=== PATIENT | male | born 1955 | race Caucasian/White ===

== ENCOUNTER 2020-09-13 17:34 | Inpatient (IN) ==
[2020-09-13 18:05] LABS: Urine Appearance Slightly Cloudy (CLEAR); Urine Bilirubin Negative (NEGATIVE); Urine Blood 25 /ul (NEGATIVE); Urine Color Yellow; Urine Ketone Negative (NEGATIVE); Urine Protein >=300 mg/dL (NEGATIVE); Urine Urobilinogen Normal (NORMAL)
[2020-09-13 18:06] LABS: Urine Nitrite Negative (NEGATIVE)
[2020-09-13 18:09] LABS: Urine Bacteria None Seen; Urine Fine Granular Cast 0-5 /LPF; Urine RBC None Seen /hpf (0-5); Urine WBC 0-5 /hpf (0-5)
[2020-09-13 18:10] LABS: Urine Amorphous Sediment Few - 1+ (NONE-FEW)
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
[2020-09-13 18:46] LABS: Hematocrit 41.9 % (42.0-52.0); Hemoglobin 13.6 gm/dL (13.5-18.0); Mean Cell Volume 89.7 fl (78-100); Mean Corpuscular Hemoglobin 29.1 pg (27-31); Mean Corpuscular Hgb Conc 32.5 g/dl (32-36); Mean Platelet Volume 9.7 fl (8-11.3); Neutrophil # 5.4 K/mm3 (1.3-6.0); Neutrophil % 86.5 % (42-75.0); Platelet Count 150 K/mm3 (150-450); Red Blood Count 4.67 M/mm3 (4.7-6.0); Red Cell Distribution Width 12.9 % (11.5-14.0); White Blood Count 6.2 K/mm3 (4.0-10.5)
[2020-09-13 19:05] LABS: Anion Gap 10.4 mmol/L (6.8-13.8); BUN/Creatinine Ratio 7.9 (9.0-21.6); Bilirubin, Total 0.4 mg/dL (0.0-1.1); Ca. Corrected For Albumin 8.1 mg/dL (8.4-10.2); Calcium * 7.6 mg/dL (7.9-10.9); Carbon Dioxide 30.2 mmol/L (24-32.6); Potassium 2.6 mmol/L (3.4-4.6); Total Protein 6.8 gm/dL (6.2-8.2)
[2020-09-13 19:12] LABS: Troponin I 0.113 ng/mL (0.00-0.10)
[2020-09-13] MEDS ORDERED: FUROSEMIDE 10 MG/ML VIAL IV ONE (19:14)
[2020-09-13] MEDS ORDERED: LEVOFLOXACIN IN DEXTROSE 5 % 500 MG/100 ML BAG IV ONE (19:14)
[2020-09-13] MEDS ORDERED: POTASSIUM CHLORIDE IN WATER 100 ML IV ONE (19:15)
[2020-09-13] MEDS ORDERED: ASPIRIN 81 MG TAB.CHEW PO ONE (19:52)
[2020-09-13] MEDS ORDERED: NORMAL SALINE 1,000 ML IV PRN (19:59)
--- NOTE | 2020-09-13 20:59 | HP ---
Chief Complaint - Chief Complaint Date of Service: 09/13/20 Time of Service: 19:30 Chief Complaint: found on floor History of Present Illness: Patient unable to contribute to history. History obtained from ERP and chart. He is a resident on an [facility] home. He has a PMHx of Down syndrome with intellectual disability, renal disease, diabetes, hypertension, and bipolar disorder. He reportedly does not converse at baseline. He was not acting himself, and was found on the floor next to his bed. In the ED, his CXR shows a density in his right chest concerning for infiltrate. His oxygen was 87% initially, so he was started on 1 L O2 via NC. He is in atrial fibrillation, which has not been present in the past. His troponin is slightly elevated at 0.113. Lactate elevated at 3.4. He's hypokalemic with potassium of 2.6. No nitrates or leuk esterase in urine. No new findings on head CT. He seemed to be favoring his right hip, and this was xrayed with no clear fracture. He was admitted for treatment of pneumonia, hypokalemia, elevated lactate. Medical History (Last Reviewed 09/13/20 @ 18:37 by Mohinedr Coe MD) Bipolar disorder (Chronic) Down's syndrome (Chronic) Enlarged heart Allergic rhinitis Anemia B12 deficiency BPH (benign prostatic hyperplasia) Chest pain Chronic kidney disease, stage 3 Constipation Depression Diabetes mellitus Diarrhea Diverticulosis Down's syndrome Edema Fatigue GERD (gastroesophageal reflux disease) Hearing loss Hyperlipemia Hypertension Mental retardation Morbid obesity Organic brain syndrome (chronic) Schizoaffective disorder, bipolar type Schizophrenia Scoliosis Sleep apnea Urinary incontinence Anal fissure Fracture History of colonic polyps Manic affective disorder with recurrent episode Surgical History: Surgical History (Last Reviewed 09/13/20 @ 18:37 by Mohinder Coe MD) H/O mastoidectomy History of esophagogastroduodenoscopy (EGD) History of myringotomy History of nasal septoplasty History of removal of cyst History of tonsillectomy Hx of colonoscopy Hx of rectal polypectomy Family History: Family History (Last Reviewed 09/13/20 @ 18:37 by Mohinder Coe MD) Mother Hypertension Hypothyroidism Father Pancreatic cancer Social History: (Last Reviewed 09/13/20 @ 18:37 by Mohinder Coe MD) Social History: lives independently: No lives independently comment: [facility] Tobacco: Smoking Status: Never smoker Alaina/Mormonism: alaina/islam: Religious Alaina Review Of Systems (GEN) - Review of Systems Generalized/Overall Review: Present: No Symptoms Reported - unable to obtain from patient Immunizations: IMMUNIZATION HX Immunizations Up to Date Yes History of Influenza Vaccine No Hx Pneumococcal Vaccination No Allergies/Adverse Reactions: Allergies Allergy/AdvReac Type Severity Reaction Status Date / Time donepezil [From Aricept] Allergy RASH Verified 04/17/20 10:05 Home Medications: HOME MEDICATIONS multivit with min-folic acid-lutein 400 mcg-250 mcg chewable tablet tab PO 03/27/18 [Last Taken Unknown] ascorbic acid (vitamin C) 500 mg tablet 1,000 mg PO DAILY #2 tab 12/18/19 [Last Taken Unknown] glipizide 5 mg tablet, extended release 24 hr 5 mg PO DAILY@0700 #30 tab 05/25/20 [Last Taken Unknown] cyanocobalamin (vitamin B-12) 1,000 mcg/mL injection solution 1,000 mcg IM QMONTH #1 ml 06/01/20 [Last Taken Unknown] amantadine HCl 100 mg capsule See Rx Instructions .ROUTE .COMPLEX #90 unknown measurement unit code: not specified 06/23/20 [Last Taken Unknown] amlodipine 5 mg tablet See Rx Instructions .ROUTE .COMPLEX #180 unknown measurement unit code: not specified 06/23/20 [Last Taken Unknown] aspirin 81 mg chewable tablet See Rx Instructions .ROUTE .COMPLEX #90 unknown measurement unit code: not specified 06/23/20 [Last Taken Unknown] omeprazole 20 mg tablet,delayed release 20 mg PO DAILY #90 tab 06/23/20 [Last Taken Unknown] levocetirizine 5 mg tablet 5 mg PO HS #30 tab 06/24/20 [Last Taken Unknown] miconazole nitrate 2 % topical powder 1 applic TP BID #90 g 07/09/20 [Last Taken Unknown] lurasidone 80 mg tablet 80 mg PO QPM #1 tab 07/21/20 [Last Taken Unknown] ferrous sulfate 325 mg (65 mg iron) tablet See Rx Instructions .ROUTE .COMPLEX #60 tab 07/22/20 [Last Taken Unknown] furosemide 40 mg tablet 40 mg PO DAILY #30 tab 07/22/20 [Last Taken Unknown] atorvastatin 20 mg tablet 20 mg PO HS #30 tab 08/19/20 [Last Taken Unknown] lamotrigine 150 mg tablet 150 mg PO DAILY #30 tab 08/19/20 [Last Taken Unknown] metoprolol tartrate 50 mg tablet 50 mg PO BID #60 tab 08/19/20 [Last Taken Unknown] blood sugar diagnostic See Rx Instructions .ROUTE .COMPLEX #100 unknown measurement unit code: not specified 09/02/20 [Last Taken Unknown] Exam - Exam Vital Signs: Vital Signs - Last Taken Temp 36.9 C 09/13/20 20:20 Pulse 88 09/13/20 20:20 Resp 22 H 09/13/20 20:20 BP 152/78 H 09/13/20 20:20 Pulse Ox 98 09/13/20 20:20 Constitutional: Present: Somnolent, Morbidly obese Respiratory: Present: normal breath sounds, No wheezing. Absent: crackles, rhonchi Cardiovascular/Chest: Present: irregularly irregular Abdomen: Present: soft, nontender Extremity: Absent: lower extremity edema Thoughts: Present: other - does not interact or respond to questions Diagnostic Studies: Abnormal Lab Results 09/13/20 09/13/20 09/13/20 Range/Units 17:46 18:24 18:24 RBC 4.67 L (4.7-6.0) M/mm3 Hct 41.9 L (42.0-52.0) % Immature Gran % (Auto) 1.10 H (0.001-0.429) % Immature Gran # (Auto) 0.07 H (0.000-0.0310) K/mm3 Neutrophils % 86.5 H (42-75.0) % Lymphocytes % 5.2 L (20-51) % Lymphocytes # 0.32 L (1.5-3.5) k/mm3 Total CO2 (19.0-24.0) mmol/L Base Excess (-2.0-3.0) mmol/L ABG pH (7.35-7.45) Potassium 2.6 L D (3.4-4.6) mmol/L Creatinine 1.78 H (0.4-1.4) mg/dL Est GFR (Non-Af Amer) 41 L (60-130) mL/min BUN/Creatinine Ratio 7.9 L (9.0-21.6) Random Glucose 332 H (70-110) mg/dL Lactic Acid, Venous (0.4-2.0) mmol/L Calcium 7.6 L (7.9-10.9) mg/dL Calcium Adj for Albumin 8.1 L (8.4-10.2) mg/dL Troponin I 0.113 H* (0.00-0.10) ng/mL B-Natriuretic Peptide 3129 H (5-175) pg/mL Albumin 3.0 L (3.4-5.0) gm/dl Urine Protein >=300 H (NEGATIVE) mg/dL Urine Glucose (UA) 250 H (NEGATIVE) mg/dL Urine Blood 25 H (NEGATIVE) /ul Fine Granular Casts 0-5 H (NONE) /LPF SARS-CoV-2 (PCR) (NotDetected) 09/13/20 09/13/20 09/13/20 Range/Units 18:24 19:17 19:30 RBC (4.7-6.0) M/mm3 Hct (42.0-52.0) % Immature Gran % (Auto) (0.001-0.429) % Immature Gran # (Auto) (0.000-0.0310) K/mm3 Neutrophils % (42-75.0) % Lymphocytes % (20-51) % Lymphocytes # (1.5-3.5) k/mm3 Total CO2 28.9 H (19.0-24.0) mmol/L Base Excess 4.4 H (-2.0-3.0) mmol/L ABG pH 7.49 H (7.35-7.45) Potassium (3.4-4.6) mmol/L Creatinine (0.4-1.4) mg/dL Est GFR (Non-Af Amer) (60-130) mL/min BUN/Creatinine Ratio (9.0-21.6) Random Glucose (70-110) mg/dL Lactic Acid, Venous 3.4 H* (0.4-2.0) mmol/L Calcium (7.9-10.9) mg/dL Calcium Adj for Albumin (8.4-10.2) mg/dL Troponin I (0.00-0.10) ng/mL B-Natriuretic Peptide (5-175) pg/mL Albumin (3.4-5.0) gm/dl Urine Protein (NEGATIVE) mg/dL Urine Glucose (UA) (NEGATIVE) mg/dL Urine Blood (NEGATIVE) /ul Fine Granular Casts (NONE) /LPF SARS-CoV-2 (PCR) Detected H (NotDetected) Laboratory Results WBC 6.2 K/mm3 (4.0-10.5) 09/13/20 18:24 RBC 4.67 M/mm3 (4.7-6.0) L 09/13/20 18:24 Hgb 13.6 gm/dL (13.5-18.0) 09/13/20 18:24 Hct 41.9 % (42.0-52.0) L 09/13/20 18:24 MCV 89.7 fl (78-100) 09/13/20 18: MCH 29.1 pg (27-31) 09/13/20 18: MCHC 32.5 g/dl (32-36) 09/13/20 18:24 RDW 12.9 % (11.5-14.0) 09/13/20 18:24 Plt Count 150 K/mm3 (150-450) 09/13/20 18: MPV 9.7 fl (8-11.3) 09/13/20 18:24 Immature Gran % (Auto) 1.10 % (0.001-0.429) H 09/13/20 18: Immature Gran # (Auto) 0.07 K/mm3 (0.000-0.0310) H 09/13/20 18:24 Neutrophils % 86.5 % (42-75.0) H 09/13/20 18:24 Lymphocytes % 5.2 % (20-51) L 09/13/20 18:24 Monocytes % 6.9 % (0.0-9) 09/13/20 18:24 Eosinophils % 0.0 % (0.0-3.0) 09/13/20 18: Basophils % 0.3 % (0.0-1.0) 09/13/20 18: Nucleated RBC % 0.0 k/mm3 (0-1) 09/13/20 18:24 Neutrophils # 5.4 K/mm3 (1.3-6.0) 09/13/20 18:24 Lymphocytes # 0.32 k/mm3 (1.5-3.5) L 09/13/20 18:24 Monocytes # 0.4 k/mm3 (0.0-1.0) 09/13/20 18:24 Eosinophils # 0.0 k/mm3 (0.0-0.7) 09/13/20 18:24 Absolute Basophils 0.0 k/mm3 (0.0-0.1) 09/13/20 18:24 pCO2 37.4 mmHg (35.0-48.0) 09/13/20 19:17 pO2 90.2 mmHg (83.0-108.0) 09/13/20 19:17 HCO3 27.8 mmol/L (21.0-28.0) 09/13/20 19:17 Total CO2 28.9 mmol/L (19.0-24.0) H 09/13/20 19:17 Base Excess 4.4 mmol/L (-2.0-3.0) H 09/13/20 19:17 ABG pH 7.49 (7.35-7.45) H 09/13/20 19:17 ABG O2 Sat (Measured) 97.5 % (94.0-98.0) 09/13/20 19:17 Sodium 135 mmol/L (132-142) 09/13/20 18:24 Plasma Sodium 139 mmol/L (130-142) 09/13/20 18:24 Potassium 2.6 mmol/L (3.4-4.6) L D 09/13/20 18:24 Chloride 97 mmol/L (97-106) 09/13/20 18:24 Carbon Dioxide 30.2 mmol/L (24-32.6) 09/13/20 18:24 Anion Gap 10.4 mmol/L (6.8-13.8) 09/13/20 18:24 BUN 14 mg/dL (6-23) 09/13/20 18:24 Creatinine 1.78 mg/dL (0.4-1.4) H 09/13/20 18:24 Est GFR (Non-Af Amer) 41 mL/min (60-130) L 09/13/20 18:24 BUN/Creatinine Ratio 7.9 (9.0-21.6) L 09/13/20 18:24 Random Glucose 332 mg/dL (70-110) H 09/13/20 18:24 Lactic Acid, Venous 3.4 mmol/L (0.4-2.0) H* 09/13/20 18:24 Calcium 7.6 mg/dL (7.9-10.9) L 09/13/20 18:24 Calcium Adj for Albumin 8.1 mg/dL (8.4-10.2) L 09/13/20 18:24 Magnesium 1.3 mg/dL (1.2-2.8) 09/13/20 18:24 Total Bilirubin 0.4 mg/dL (0.0-1.1) 09/13/20 18:24 AST 20 U/L (0-48) 09/13/20 18:24 ALT 25 U/L (19-67) 09/13/20 18:24 Alkaline Phosphatase 132 U/L (50-170) 09/13/20 18:24 Creatine Kinase 164 U/L (0-259) 09/13/20 18:24 Troponin I 0.113 ng/mL (0.00-0.10) H* 09/13/20 18:24 B-Natriuretic Peptide 3129 pg/mL (5-175) H 09/13/20 18:24 Total Protein 6.8 gm/dL (6.2-8.2) 09/13/20 18:24 Albumin 3.0 gm/dl (3.4-5.0) L 09/13/20 18:24 Urine Color Yellow 09/13/20 17:46 Urine Appearance Slightly cloudy (CLEAR) 09/13/20 17:46 Urine pH 6.0 pH (5.0-7.0) 09/13/20 17:46 Ur Specific [place] 1.020 SP.GR. (1.005-1.030) 09/13/20 17:46 Urine Protein >=300 mg/dL (NEGATIVE) H 09/13/20 17:46 Urine Glucose (UA) 250 mg/dL (NEGATIVE) H 09/13/20 17:46 Urine Ketones Negative mg/dL (NEGATIVE) 09/13/20 17:46 Urine Blood 25 /ul (NEGATIVE) H 09/13/20 17:46 Urine Nitrate Negative (NEGATIVE) 09/13/20 17:46 Urine Bilirubin Negative mg/dl (NEGATIVE) 09/13/20 17:46 Urine Urobilinogen Normal EU/dl (NORMAL) 09/13/20 17:46 Ur Leukocyte Esterase Negative /ul (NEGATIVE) 09/13/20 17:46 Urine RBC None seen /hpf (0-5) 09/13/20 17:46 Urine WBC 0-5 /hpf (0-5) 09/13/20 17:46 Ur Epithelial Cells 0-5 /hpf (0-5) 09/13/20 17:46 Amorphous Sediment Few - 1+ (NONE-FEW) 09/13/20 17:46 Urine Bacteria None seen (NONE) 09/13/20 17:46 Fine Granular Casts 0-5 /LPF (NONE) H 09/13/20 17:46 Urine Culture Comments No culture indicated 09/13/20 17:46 SARS-CoV-2 (PCR) Detected (NotDetected) H 09/13/20 19:30 Assessment/Plan - Narrative Narrative: He was started on levaquin in the ED, and will continue. He has a mildly elevated BNP, but no signs of fluid overload on exam, so will administer a 500 cc NS bolus for the elevated lactate. His troponin elevated may be due to his new onset afib. His vitals are normal, so he is not currently septic. He was given IV potassium in the ED, and will recheck in the morning. Repeat troponin and lactate levels pending. I called his contact in his chart, but unable to reach her regarding code status and goals of care, so will try again tomorrow. COVID test still pending at this time. Anticipate hospitalization of at least 2 midnights. - Assessment/Plan (1) Pneumonia Problem: Acute (2) Hypoxia Problem: Acute (3) Elevated troponin Problem: Acute (4) Elevated lactic acid level Problem: Acute (5) Hypokalemia Problem: Acute (6) New onset a-fib Problem: Acute (7) Hypertension Problem: Chronic Qualifiers: Hypertension type: essential hypertension Qualified Code(s): I10 - Essential (primary) hypertension (8) Type II diabetes mellitus Problem: Chronic Qualifiers: Diabetes mellitus intermediate project manager insulin use: without intermediate project manager use Diabetes mellitus complication status: with kidney complications Diabetes mellitus complication detail: with chronic kidney disease Chronic kidney disease stage: stage 3 (moderate) Qualified Code(s): E11.22 - Type 2 diabetes mellitus with diabetic chronic kidney disease; N18.3 - Chronic kidney disease, stage 3 (moderate) (9) Bipolar disorder Problem: Chronic Qualifiers: Active/Remission status: currently active Current bipolar episode type: depressed Current episode severity: mild Qualified Code(s): F31.31 - Bipolar disorder, current episode depressed, mild (10) Down's syndrome Problem: Chronic
[2020-09-13] MEDS: NORMAL SALINE 1,000 ML IV PRN (22:00)
[2020-09-13] MEDS: ENOXAPARIN SODIUM 40 MG/0.4 ML SYRG SC SCH (23:56)
[2020-09-14 05:19] LABS: Hematocrit 41.6 % (42.0-52.0); Hemoglobin 13.5 gm/dL (13.5-18.0); Mean Cell Volume 89.5 fl (78-100); Mean Corpuscular Hgb Conc 32.5 g/dl (32-36); Mean Platelet Volume 9.8 fl (8-11.3); Neutrophil # 4.4 K/mm3 (1.3-6.0); Neutrophil % 83.6 % (42-75.0); Platelet Count 146 K/mm3 (150-450); Red Blood Count 4.65 M/mm3 (4.7-6.0); Red Cell Distribution Width 12.8 % (11.5-14.0); White Blood Count 5.3 K/mm3 (4.0-10.5)
[2020-09-14 05:37] LABS: Albumin * 2.9 gm/dl (3.4-5.0); Anion Gap 14.3 mmol/L (6.8-13.8); BUN/Creatinine Ratio 8.8 (9.0-21.6); Bilirubin, Total 0.4 mg/dL (0.0-1.1); Ca. Corrected For Albumin 7.5 mg/dL (8.4-10.2); Calcium * 6.9 mg/dL (7.9-10.9); Carbon Dioxide 30.3 mmol/L (24-32.6); Potassium 2.6 mmol/L (3.4-4.6); Total Protein 6.2 gm/dL (6.2-8.2)
[2020-09-14] MEDS: NORMAL SALINE 1,000 ML IV PRN ×3 (06:00→17:49)
[2020-09-14] MEDS: DEXAMETHASONE SODIUM PHOSPHATE 10 MG/ML VIAL IV SCH (08:29)
--- NOTE | 2020-09-14 08:45 | PN ---
Subjective - Date and Time Seen Date: 09/14/20 Time: 09:45 Subjective Narrative: Is not interactive. Talked to his sister in law, Ceci. Normally, he won't talk to people, but he does talk. He doesn't hear well. He always sleeps a lot, but he feeds himself. He is DNR. They didn't know he wasn't feeling well, so she is unaware of when symptoms started. He uses a CPAP. He takes meds ok. Checks his own glucose. She is Ok with keeping anticoagulation after DC for his afib. Objective Objective Narrative: unable to obtain - Vitals Vitals: Last Vital Signs Temp 36.9 C 09/14/20 07:05 Pulse 98 09/14/20 07:05 Resp 20 09/14/20 07:05 BP 156/70 H 09/14/20 07:05 Pulse Ox 92 L 09/14/20 07:05 - Abnormal Lab Findings Abnormal Lab Findings: Abnormal Lab Results 09/13/20 09/13/20 09/13/20 Range/Units 17:46 18:24 18:24 RBC 4.67 L (4.7-6.0) M/mm3 Hct 41.9 L (42.0-52.0) % Plt Count (150-450) K/mm3 Immature Gran % (Auto) 1.10 H (0.001-0.429) % Immature Gran # (Auto) 0.07 H (0.000-0.0310) K/mm3 Neutrophils % 86.5 H (42-75.0) % Lymphocytes % 5.2 L (20-51) % Lymphocytes # 0.32 L (1.5-3.5) k/mm3 Total CO2 (19.0-24.0) mmol/L Base Excess (-2.0-3.0) mmol/L ABG pH (7.35-7.45) Plasma Sodium (130-142) mmol/L Potassium 2.6 L D (3.4-4.6) mmol/L Anion Gap (6.8-13.8) mmol/L Creatinine 1.78 H (0.4-1.4) mg/dL Est GFR (Non-Af Amer) 41 L (60-130) mL/min BUN/Creatinine Ratio 7.9 L (9.0-21.6) Random Glucose 332 H (70-110) mg/dL Lactic Acid, Venous (0.4-2.0) mmol/L Calcium 7.6 L (7.9-10.9) mg/dL Calcium Adj for Albumin 8.1 L (8.4-10.2) mg/dL AST (0-48) U/L Troponin I 0.113 H* (0.00-0.10) ng/mL B-Natriuretic Peptide 3129 H (5-175) pg/mL Albumin 3.0 L (3.4-5.0) gm/dl Urine Protein >=300 H (NEGATIVE) mg/dL Urine Glucose (UA) 250 H (NEGATIVE) mg/dL Urine Blood 25 H (NEGATIVE) /ul Fine Granular Casts 0-5 H (NONE) /LPF SARS-CoV-2 (PCR) (NotDetected) 09/13/20 09/13/20 09/13/20 Range/Units 18:24 19:17 19:30 RBC (4.7-6.0) M/mm3 Hct (42.0-52.0) % Plt Count (150-450) K/mm3 Immature Gran % (Auto) (0.001-0.429) % Immature Gran # (Auto) (0.000-0.0310) K/mm3 Neutrophils % (42-75.0) % Lymphocytes % (20-51) % Lymphocytes # (1.5-3.5) k/mm3 Total CO2 28.9 H (19.0-24.0) mmol/L Base Excess 4.4 H (-2.0-3.0) mmol/L ABG pH 7.49 H (7.35-7.45) Plasma Sodium (130-142) mmol/L Potassium (3.4-4.6) mmol/L Anion Gap (6.8-13.8) mmol/L Creatinine (0.4-1.4) mg/dL Est GFR (Non-Af Amer) (60-130) mL/min BUN/Creatinine Ratio (9.0-21.6) Random Glucose (70-110) mg/dL Lactic Acid, Venous 3.4 H* (0.4-2.0) mmol/L Calcium (7.9-10.9) mg/dL Calcium Adj for Albumin (8.4-10.2) mg/dL AST (0-48) U/L Troponin I (0.00-0.10) ng/mL B-Natriuretic Peptide (5-175) pg/mL Albumin (3.4-5.0) gm/dl Urine Protein (NEGATIVE) mg/dL Urine Glucose (UA) (NEGATIVE) mg/dL Urine Blood (NEGATIVE) /ul Fine Granular Casts (NONE) /LPF SARS-CoV-2 (PCR) Detected H (NotDetected) 09/13/20 09/14/20 09/14/20 Range/Units 22:14 01:05 05:00 RBC 4.65 L (4.7-6.0) M/mm3 Hct 41.6 L (42.0-52.0) % Plt Count 146 L (150-450) K/mm3 Immature Gran % (Auto) 0.80 H (0.001-0.429) % Immature Gran # (Auto) 0.04 H (0.000-0.0310) K/mm3 Neutrophils % 83.6 H (42-75.0) % Lymphocytes % 7.5 L (20-51) % Lymphocytes # 0.40 L (1.5-3.5) k/mm3 Total CO2 (19.0-24.0) mmol/L Base Excess (-2.0-3.0) mmol/L ABG pH (7.35-7.45) Plasma Sodium (130-142) mmol/L Potassium (3.4-4.6) mmol/L Anion Gap (6.8-13.8) mmol/L Creatinine (0.4-1.4) mg/dL Est GFR (Non-Af Amer) (60-130) mL/min BUN/Creatinine Ratio (9.0-21.6) Random Glucose (70-110) mg/dL Lactic Acid, Venous (0.4-2.0) mmol/L Calcium (7.9-10.9) mg/dL Calcium Adj for Albumin (8.4-10.2) mg/dL AST (0-48) U/L Troponin I 0.251 H* 0.311 H* (0.00-0.10) ng/mL B-Natriuretic Peptide (5-175) pg/mL Albumin (3.4-5.0) gm/dl Urine Protein (NEGATIVE) mg/dL Urine Glucose (UA) (NEGATIVE) mg/dL Urine Blood (NEGATIVE) /ul Fine Granular Casts (NONE) /LPF SARS-CoV-2 (PCR) (NotDetected) 09/14/20 09/14/20 Range/Units 05:00 05:00 RBC (4.7-6.0) M/mm3 Hct (42.0-52.0) % Plt Count (150-450) K/mm3 Immature Gran % (Auto) (0.001-0.429) % Immature Gran # (Auto) (0.000-0.0310) K/mm3 Neutrophils % (42-75.0) % Lymphocytes % (20-51) % Lymphocytes # (1.5-3.5) k/mm3 Total CO2 (19.0-24.0) mmol/L Base Excess (-2.0-3.0) mmol/L ABG pH (7.35-7.45) Plasma Sodium 144 H (130-142) mmol/L Potassium 2.6 L (3.4-4.6) mmol/L Anion Gap 14.3 H (6.8-13.8) mmol/L Creatinine 1.47 H (0.4-1.4) mg/dL Est GFR (Non-Af Amer) 51 L D (60-130) mL/min BUN/Creatinine Ratio 8.8 L (9.0-21.6) Random Glucose 230 H D (70-110) mg/dL Lactic Acid, Venous (0.4-2.0) mmol/L Calcium 6.9 L (7.9-10.9) mg/dL Calcium Adj for Albumin 7.5 L (8.4-10.2) mg/dL AST 64 H (0-48) U/L Troponin I 0.302 H* (0.00-0.10) ng/mL B-Natriuretic Peptide (5-175) pg/mL Albumin 2.9 L (3.4-5.0) gm/dl Urine Protein (NEGATIVE) mg/dL Urine Glucose (UA) (NEGATIVE) mg/dL Urine Blood (NEGATIVE) /ul Fine Granular Casts (NONE) /LPF SARS-CoV-2 (PCR) (NotDetected) - Exam Constitutional: Present: No distress, Somnolent, Morbidly obese Respiratory: Present: no accessory muscle use, other - oxygenating in the low 90's on 2L Cardiovascular/Chest: Present: regular rate, rhythm Abdomen: Present: obese Extremity: Absent: lower extremity edema Thoughts: Present: other - does not interact Assessment/Plan Plan Narrative: His lactate and troponin peaked overnight after administration of fluids. We will continue Decadron daily for the Covid pneumonia. He is oxygenating in the low 90s on 2 L via nasal cannula. For his new onset A. fib, he is already on metoprolol for rate control. His [id number] who is his medical POA agrees to continue anticoagulation. We will continue Lovenox for now, and will change to Eliquis when he is more awake. His potassium is not correcting as expected, likely due to the low phosphorus. We will administer a p.o. dose of sodium phosphate and recheck BMP this afternoon. Potassium was 2.6 this morning, up from 2.4 in the ED after 40 mEq given IV. Anticipate his hospitalization will continue for more than 2 midnights. I am not sure that his group facility will take him back while he is Covid positive, since he has 2 roommates. Appreciate case management assistance in discharge planning. - Problems/Diagnosis (1) Pneumonia Problem: Acute (2) Hypoxia Problem: Acute (3) Elevated troponin Problem: Resolved (4) Elevated lactic acid level Problem: Resolved (5) Hypokalemia Problem: Acute (6) New onset a-fib Problem: Acute (7) Hypertension Problem: Chronic Qualifiers: Hypertension type: essential hypertension Qualified Code(s): I10 - Essential (primary) hypertension (8) Type II diabetes mellitus Problem: Chronic Qualifiers: Diabetes mellitus termite treater insulin use: without mcc use Diabetes mellitus complication status: with kidney complications Diabetes mellitus complication detail: with chronic kidney disease Chronic kidney disease stage: stage 3 (moderate) (9) Bipolar disorder Problem: Chronic Qualifiers: Active/Remission status: currently active Current bipolar episode type: depressed Current episode severity: mild Qualified Code(s): F31.31 - Bipolar disorder, current episode depressed, mild (10) Down's syndrome Problem: Chronic
[2020-09-14] MEDS: POTASSIUM CHLORIDE IN WATER 100 ML IV SCH ×4 (09:03→12:27)
[2020-09-14] MEDS ORDERED: NAPH,MB-DB/K PH,MBDB 1 PACKET PACKET PO ONE (14:45)
[2020-09-14] MEDS: lamoTRIgine 100 MG TABLET PO SCH (14:52)
[2020-09-14 16:08] LABS: Anion Gap 13.7 mmol/L (6.8-13.8); BUN/Creatinine Ratio 8.4 (9.0-21.6); Calcium * 7.2 mg/dL (7.9-10.9); Carbon Dioxide 28.8 mmol/L (24-32.6); Estimated Creat Clear 52.7; Potassium 3.5 mmol/L (3.4-4.6)
[2020-09-14] MEDS: LURASIDONE HCL 80 MG TABLET PO SCH (17:49)
[2020-09-14] MEDS: INSULIN LISPRO 100 UNITS/ML VIAL SC SCH ×2 (17:49→22:12)
[2020-09-14] MEDS: LEVOFLOXACIN IN DEXTROSE 5 % 750 MG/150 ML BAG IV SCH (21:53)
[2020-09-14] MEDS: METOPROLOL TARTRATE 50 MG TABLET PO SCH (21:53)
[2020-09-14] MEDS: ENOXAPARIN SODIUM 40 MG/0.4 ML SYRG SC SCH (21:54)
[2020-09-15] MEDS ORDERED: FUROSEMIDE 10 MG/ML VIAL IV ONE ×2 (01:20→08:49)
[2020-09-15 06:55] LABS: Albumin * 2.5 gm/dl (3.4-5.0); Anion Gap 16.6 mmol/L (6.8-13.8); BUN/Creatinine Ratio 12.1 (9.0-21.6); Bilirubin, Total 0.5 mg/dL (0.0-1.1); Ca. Corrected For Albumin 7.1 mg/dL (8.4-10.2); Calcium * 6.2 mg/dL (7.9-10.9); Carbon Dioxide 25.7 mmol/L (24-32.6); Potassium 3.3 mmol/L (3.4-4.6); Total Protein 5.8 gm/dL (6.2-8.2)
[2020-09-15] MEDS: INSULIN LISPRO 100 UNITS/ML VIAL SC SCH ×4 (07:19→22:07)
[2020-09-15] MEDS: METOPROLOL TARTRATE 50 MG TABLET PO SCH ×2 (08:46→22:06)
[2020-09-15] MEDS: POTASSIUM CHLORIDE 10 MEQ TABLET.SA PO SCH (08:46)
[2020-09-15] MEDS: lamoTRIgine 100 MG TABLET PO SCH (08:46)
[2020-09-15] MEDS: DEXAMETHASONE SODIUM PHOSPHATE 10 MG/ML VIAL IV SCH (08:47)
--- NOTE | 2020-09-15 11:04 | PN ---
Subjective - Date and Time Seen Date: 09/15/20 Time: 08:30 Subjective Narrative: Called overnight for nursing concerns regarding him sounding more congested. Fluids stopped, and lasix started. He is more alert this morning, but does have increased work of breathing. Objective Objective Narrative: unable to obtain - Vitals Vitals: Last Vital Signs Temp 37.8 C 09/15/20 10:05 Pulse 77 09/15/20 10:10 Resp 28 H 09/15/20 10:05 BP 142/95 H 09/15/20 10:10 Pulse Ox 100 09/15/20 10:05 - Abnormal Lab Findings Abnormal Lab Findings: Abnormal Lab Results 09/14/20 09/15/20 Range/Units 15:41 06:15 Plasma Sodium 144 H 143 H (130-142) mmol/L Potassium 3.3 L (3.4-4.6) mmol/L Anion Gap 16.6 H (6.8-13.8) mmol/L Creatinine 1.43 H (0.4-1.4) mg/dL Est GFR (Non-Af Amer) 53 L (60-130) mL/min BUN/Creatinine Ratio 8.4 L (9.0-21.6) Random Glucose 344 H D 238 H D (70-110) mg/dL Calcium 7.2 L 6.2 L (7.9-10.9) mg/dL Calcium Adj for Albumin 7.1 L (8.4-10.2) mg/dL AST 124 H (0-48) U/L Total Protein 5.8 L (6.2-8.2) gm/dL Albumin 2.5 L (3.4-5.0) gm/dl - Exam Constitutional: Present: Alert, No distress, Morbidly obese Respiratory: Present: lungs clear, accessory muscle use - belly breathing Cardiovascular/Chest: Present: irregularly irregular Abdomen: Present: obese Extremity: Present: lower extremity edema - trace bilaterally Appearance: Present: impaired insight Eye contact: Present: other - does not respond to questions, but is more interactive than yesterday Assessment/Plan Plan Narrative: Today is day 3 of hospitalization. Due to his Down syndrome, he lives in a senior care, and his sister in law was unaware of him complaining of illness prior to him coming to the ED, where he tested positive for COVID. Onset of symptoms is unclear. Since we don't know symptom onset, did not administer remdesivir. He's been receiving decadron and levaquin, and is improving. He was sleeping yesterday, and not awake to eat or drink. Maintainence fluids were administered until he developed some congestion. These were stopped, and lasix started. His oxygen requirement increased overnight, and he's been using an oxymask. He is alert today and tolerating a diet. Will administer 5 doses of the levaquin, and continue daily lasix. Because he lives in a senior care with roomates, his DC plan in unclear at this time. He may need a nursing facility. Very much appreciate case management's efforts in making these arrangements. Anticipate hospitalization will continue for greater than 2 midnights. - Problems/Diagnosis (1) Pneumonia due to COVID-19 virus Problem: Acute (2) Pneumonia Problem: Acute (3) Hypoxia Problem: Acute (4) Elevated troponin Problem: Resolved (5) Elevated lactic acid level Problem: Resolved (6) Hypokalemia Problem: Acute (7) New onset a-fib Problem: Acute (8) Hypertension Problem: Chronic Qualifiers: Hypertension type: essential hypertension Qualified Code(s): I10 - Essential (primary) hypertension (9) Type II diabetes mellitus Problem: Chronic Qualifiers: Diabetes mellitus half-way insulin use: without intermediate project manager use Diabetes mellitus complication status: with kidney complications Diabetes mellitus complication detail: with chronic kidney disease Chronic kidney disease stage: stage 3 (moderate) (10) Bipolar disorder Problem: Chronic Qualifiers: Active/Remission status: currently active Current bipolar episode type: depressed Current episode severity: mild Qualified Code(s): F31.31 - Bipolar disorder, current episode depressed, mild (11) Down's syndrome Problem: Chronic (12) Acute hypoxemic respiratory failure due to COVID-19 Problem: Resolved Narrative: oxygen requirement improving, so no longer considered respiratory failure
[2020-09-15] MEDS: FUROSEMIDE 40 MG TABLET PO SCH (15:27)
[2020-09-15] MEDS: LURASIDONE HCL 80 MG TABLET PO SCH (16:58)
[2020-09-15] MEDS: LEVOFLOXACIN IN DEXTROSE 5 % 750 MG/150 ML BAG IV SCH (20:12)
[2020-09-15] MEDS: ENOXAPARIN SODIUM 40 MG/0.4 ML SYRG SC SCH (22:05)
[2020-09-16] MEDS: INSULIN LISPRO 100 UNITS/ML VIAL SC SCH ×4 (06:57→20:38)
[2020-09-16] MEDS: DEXAMETHASONE SODIUM PHOSPHATE 10 MG/ML VIAL IV SCH (08:04)
[2020-09-16] MEDS: POTASSIUM CHLORIDE 10 MEQ TABLET.SA PO SCH (08:04)
[2020-09-16] MEDS: FUROSEMIDE 40 MG TABLET PO SCH (08:04)
[2020-09-16] MEDS: METOPROLOL TARTRATE 50 MG TABLET PO SCH ×2 (08:05→20:23)
[2020-09-16] MEDS: lamoTRIgine 100 MG TABLET PO SCH (08:05)
[2020-09-16] MEDS: ACETAMINOPHEN 325 MG TABLET PO PRN ×2 (13:17→20:24)
[2020-09-16] MEDS: LURASIDONE HCL 80 MG TABLET PO SCH (17:38)
[2020-09-16] MEDS: LEVOFLOXACIN IN DEXTROSE 5 % 750 MG/150 ML BAG IV SCH (20:22)
[2020-09-16] MEDS: ONDANSETRON HCL/PF 2 MG/ML VIAL IV PRN (20:24)
[2020-09-16] MEDS: ENOXAPARIN SODIUM 40 MG/0.4 ML SYRG SC SCH (20:37)
--- NOTE | 2020-09-16 22:17 | PN ---
Subjective - Date and Time Seen Date: 09/16/20 Time: 12:08 Subjective Narrative: Patient mostly nonverbal. He sounds better, diuresed with iv lasix. He did have a low drage fever at 38.2, tylenol ordered. Objective Objective Narrative: patient is nonverbal mostly - Vitals Vitals: Last Vital Signs Temp 38.2 C H 09/16/20 19:00 Pulse 94 09/16/20 20:23 Resp 30 H 09/16/20 19:00 BP 130/99 H 09/16/20 20:23 Pulse Ox 90 L 09/16/20 19:00 - Exam Constitutional: Present: Alert, Morbidly obese Respiratory: Present: no respiratory distress, decreased breath sounds. Absent: crackles, wheezing Cardiovascular/Chest: Present: no murmur, irregularly irregular Abdomen: Present: soft, nontender, nondistended Skin Exam: Present: normal color, warm/dry Assessment/Plan Plan Narrative: Day 4. Patient is mostly nonverbal due to down syndrome. Did not answer any of my questions. No acute distress. Lungs sound better per nursing staff, did not sound congesgted today. He is on lovenox, decadron, levaquin, Patient is on lasix. Continue oxygen as needed to maintain sats. Added tylenol for fever. Increased his sliding scale as he has had some elevated sugars. Because he lives in a [facility] with roomates, his DC plan in unclear at this time. He may need a nursing facility. Very much appreciate case management's efforts in making these arrangements. Anticipate hospitalization will continue for greater than 1 more midnight. - Problems/Diagnosis (1) Acute hypoxemic respiratory failure due to COVID-19 Problem: Resolved (2) History of Down syndrome Problem: Chronic (3) Hypertension Problem: Chronic Qualifiers: Hypertension type: essential hypertension Qualified Code(s): I10 - Essential (primary) hypertension (4) Diabetes mellitus Problem: Chronic Qualifiers: Diabetes mellitus type: type 2 Diabetes mellitus manager terminal insulin use: without manager terminal use Diabetes mellitus complication status: with kidney complications Diabetes mellitus complication detail: with chronic kidney disease Chronic kidney disease stage: stage 3 (moderate) (5) Type II diabetes mellitus Problem: Chronic Qualifiers: Diabetes mellitus jail insulin use: without manager terminal use Diabetes mellitus complication status: with kidney complications Diabetes mellitus complication detail: with chronic kidney disease Chronic kidney disease stage: stage 3 (moderate) (6) New onset a-fib Problem: Acute
[2020-09-17] MEDS: INSULIN LISPRO 100 UNITS/ML VIAL SC SCH ×4 (07:37→20:44)
[2020-09-17] MEDS: DEXAMETHASONE SODIUM PHOSPHATE 10 MG/ML VIAL IV SCH (09:26)
[2020-09-17] MEDS: POTASSIUM CHLORIDE 10 MEQ TABLET.SA PO SCH (09:27)
[2020-09-17] MEDS: lamoTRIgine 100 MG TABLET PO SCH (09:27)
[2020-09-17] MEDS: FUROSEMIDE 40 MG TABLET PO SCH (09:28)
[2020-09-17] MEDS: METOPROLOL TARTRATE 50 MG TABLET PO SCH ×2 (09:28→20:20)
[2020-09-17 11:18] LABS: Hematocrit 47.1 % (42.0-52.0); Hemoglobin 14.7 gm/dL (13.5-18.0); Mean Cell Volume 92.4 fl (78-100); Mean Corpuscular Hemoglobin 28.8 pg (27-31); Mean Corpuscular Hgb Conc 31.2 g/dl (32-36); Platelet Count 169 K/mm3 (150-450); Red Cell Distribution Width 13.1 % (11.5-14.0); White Blood Count 6.9 K/mm3 (4.0-10.5)
[2020-09-17 11:23] LABS: Albumin * 2.7 gm/dl (3.4-5.0); Anion Gap 10.1 mmol/L (6.8-13.8); BUN/Creatinine Ratio 15.8 (9.0-21.6); Bilirubin, Total 0.4 mg/dL (0.0-1.1); Ca. Corrected For Albumin 7.9 mg/dL (8.4-10.2); Calcium * 7.2 mg/dL (7.9-10.9); Carbon Dioxide 34.4 mmol/L (24-32.6); Potassium 3.5 mmol/L (3.4-4.6); Total Protein 7.1 gm/dL (6.2-8.2)
[2020-09-17 11:31] LABS: Total Cells Counted 100
[2020-09-17] MEDS: ACETAMINOPHEN 325 MG TABLET PO PRN (12:11)
[2020-09-17 12:12] LABS: Band 11 % (0-2.0); Immature Granulocyte 1 (0-1); Lymphocyte 7 % (20-51); Monocyte 1 % (0-9); Neutrophil 80 % (42-75); Neutrophil # 5.5 K/mm3 (1.3-6.0)
[2020-09-17 12:21] LABS: Platelet Estimate Normal (NORMAL); RBC Morphology Normal (NORMAL)
[2020-09-17] MEDS ORDERED: ALBUTEROL SULFATE/IPRATROPIUM 3 ML NEBU IH PRN (14:25)
[2020-09-17] MEDS: LURASIDONE HCL 80 MG TABLET PO SCH (16:49)
[2020-09-17] MEDS: LEVOFLOXACIN IN DEXTROSE 5 % 750 MG/150 ML BAG IV SCH (19:00)
[2020-09-17] MEDS: ENOXAPARIN SODIUM 40 MG/0.4 ML SYRG SC SCH (20:35)
--- NOTE | 2020-09-17 21:42 | PN ---
Subjective - Date and Time Seen Date: 09/17/20 Time: 14:21 Subjective Narrative: PAtient is resting comfortably in his chair. Some concern for aspiration overnight. Today his lungs sound better and are less congested. His WBC remained unchanged. I think likely shoemaker that he aspitated is minimal and he is on levaquin. He has also been transitioned to o2 via NC which he is tolerating well. Objective Objective Narrative: patient is nonverbal, refused to respond to me today - Vitals Vitals: Last Vital Signs Temp 36.4 C 09/17/20 17:30 Pulse 68 09/17/20 20:20 Resp 24 H 09/17/20 17:30 BP 135/68 09/17/20 20:20 Pulse Ox 94 09/17/20 17:30 - Abnormal Lab Findings Abnormal Lab Findings: Abnormal Lab Results 09/17/20 09/17/20 Range/Units 10:54 10:54 MCHC 31.2 L (32-36) g/dl Neutrophils % (Manual) 80 H (42-75) % Band Neuts % (Manual) 11 H (0-2.0) % Lymphocytes % (Manual) 7 L (20-51) % Lymphocytes # (Manual) 0.5 L (1.5-3.5) k/mm3 Carbon Dioxide 34.4 H (24-32.6) mmol/L BUN 27 H D (6-23) mg/dL Creatinine 1.71 H D (0.4-1.4) mg/dL Est GFR (Non-Af Amer) 43 L D (60-130) mL/min Random Glucose 326 H D (70-110) mg/dL Calcium 7.2 L (7.9-10.9) mg/dL Calcium Adj for Albumin 7.9 L (8.4-10.2) mg/dL AST 100 H (0-48) U/L Albumin 2.7 L (3.4-5.0) gm/dl - Exam Constitutional: Present: Alert, Morbidly obese Respiratory: Present: lungs clear, decreased breath sounds. Absent: crackles, wheezing Cardiovascular/Chest: Present: irregularly irregular Abdomen: Present: soft, nontender, nondistended Skin Exam: Present: normal color, warm/dry Appearance: Present: impaired insight Assessment/Plan Plan Narrative: Patient clinically is improving. On the appropriate medications. His labs and vitals are appropriate and his o2 requirement is less then the day before. He is already on coverage for aspiration PNA. His sugars are still farely elevated with the moderate sliding scale, will increase to high sliding scale, continue to monitor. Nurse to call with any questions or concerns. - Problems/Diagnosis (1) Acute hypoxemic respiratory failure due to COVID-19 Problem: Resolved (2) History of Down syndrome Problem: Chronic (3) Hypertension Problem: Chronic Qualifiers: Hypertension type: essential hypertension Qualified Code(s): I10 - Essential (primary) hypertension (4) Diabetes mellitus Problem: Chronic Qualifiers: Diabetes mellitus type: type 2 Diabetes mellitus chcf insulin use: without chcf use Diabetes mellitus complication status: with kidney complications Diabetes mellitus complication detail: with chronic kidney disease Chronic kidney disease stage: stage 3 (moderate) (5) Type II diabetes mellitus Problem: Chronic Qualifiers: Diabetes mellitus fire alarm installer insulin use: without fire alarm installer use Diabetes mellitus complication status: with kidney complications Diabetes mellitus complication detail: with chronic kidney disease Chronic kidney disease stage: stage 3 (moderate) (6) New onset a-fib Problem: Acute
[2020-09-18] MEDS: ONDANSETRON HCL/PF 2 MG/ML VIAL IV PRN (06:48)
[2020-09-18] MEDS: INSULIN LISPRO 100 UNITS/ML VIAL SC SCH ×4 (07:19→21:32)
[2020-09-18] MEDS: lamoTRIgine 100 MG TABLET PO SCH (08:44)
[2020-09-18] MEDS: FUROSEMIDE 40 MG TABLET PO SCH (08:44)
[2020-09-18] MEDS: POTASSIUM CHLORIDE 10 MEQ TABLET.SA PO SCH (08:45)
[2020-09-18] MEDS: METOPROLOL TARTRATE 50 MG TABLET PO SCH (08:45)
[2020-09-18] MEDS: DEXAMETHASONE SODIUM PHOSPHATE 10 MG/ML VIAL IV SCH (08:45)
--- NOTE | 2020-09-18 10:31 | PN ---
Subjective - Date and Time Seen Date: 09/18/20 Time: 08:00 Subjective Narrative: He's been having nausea after eating. He removed the oxymask overnight and declined putting it back on. Is having bowel movements. Objective Objective Narrative: unable to obtain, as patient does not answer questions - Vitals Vitals: Last Vital Signs Temp 37.6 C 09/18/20 07:13 Pulse 86 09/18/20 08:45 Resp 22 H 09/18/20 07:13 BP 141/74 09/18/20 08:45 Pulse Ox 93 09/18/20 08:30 - Abnormal Lab Findings Abnormal Lab Findings: Abnormal Lab Results 09/17/20 09/17/20 Range/Units 10:54 10:54 MCHC 31.2 L (32-36) g/dl Neutrophils % (Manual) 80 H (42-75) % Band Neuts % (Manual) 11 H (0-2.0) % Lymphocytes % (Manual) 7 L (20-51) % Lymphocytes # (Manual) 0.5 L (1.5-3.5) k/mm3 Carbon Dioxide 34.4 H (24-32.6) mmol/L BUN 27 H D (6-23) mg/dL Creatinine 1.71 H D (0.4-1.4) mg/dL Est GFR (Non-Af Amer) 43 L D (60-130) mL/min Random Glucose 326 H D (70-110) mg/dL Calcium 7.2 L (7.9-10.9) mg/dL Calcium Adj for Albumin 7.9 L (8.4-10.2) mg/dL AST 100 H (0-48) U/L Albumin 2.7 L (3.4-5.0) gm/dl - Exam Constitutional: Present: Alert, No distress, Morbidly obese Respiratory: Present: normal breath sounds, other - using 4L via NC, but appears to be mouth breathing Cardiovascular/Chest: Present: regular rate, rhythm Abdomen: Present: nontender Extremity: Absent: lower extremity edema Eye contact: Present: other - does not interact or answer questions Assessment/Plan Plan Narrative: Today is day #6 of admission. Patient has Down syndrome and is a resident of an [facility]. Was found down on the day of admission and brought to the ED. Workup was positive for pneumonia and COVID. He required fluids initially. Has been improving with decadron and levaquin. Has been given 5 doses of levaquin, so he's completed that course. He does not answer questions, so improvement is determined by vitals and level of interaction. He will make some needs known (like BMs), but does not answer questions. He will get 7 doses of decadron, and this order is updated. He has been accepted to [facility], and will go there when his quarantine period is over, on 09/23/20. Wean O2 as tolerated. He was found to be in afib on admission, and his POA agrees to keeping anticoagulation after DC. Will continue lovenox for now. Glucose is managed with SSI. Now that he is more awake than admission, will resume home glipizide. Developed MAYRA while here. His fluid balance has been difficult, but I feel like this was due to IV lasix use. However, with a COVID pneumonia, he is sensitive to excess fluids, so will not restart. PO intake has been sufficient. - Problems/Diagnosis (1) Pneumonia due to COVID-19 virus Problem: Acute (2) Pneumonia Problem: Acute (3) Acute on chronic renal failure Problem: Acute Narrative: He was given fluids initially, but developed some congestion so these were stopped and IV lasix given. GFR subsequently decreased and creatinine increased. Will recheck again in am, but will give fluids sparingly. (4) Hypoxia Problem: Acute (5) Elevated troponin Problem: Resolved (6) Elevated lactic acid level Problem: Resolved (7) Hypokalemia Problem: Resolved (8) New onset a-fib Problem: Acute (9) Hypertension Problem: Chronic Qualifiers: Hypertension type: essential hypertension Qualified Code(s): I10 - Essential (primary) hypertension (10) Type II diabetes mellitus Problem: Chronic Qualifiers: Diabetes mellitus long line teamster insulin use: without detention use Diabetes mellitus complication status: with kidney complications Diabetes mellitus complication detail: with chronic kidney disease Chronic kidney disease stage: stage 3 (moderate) (11) Bipolar disorder Problem: Chronic Qualifiers: Active/Remission status: currently active Current bipolar episode type: depressed Current episode severity: mild Qualified Code(s): F31.31 - Bipolar disorder, current episode depressed, mild (12) Down's syndrome Problem: Chronic (13) Acute hypoxemic respiratory failure due to COVID-19 Problem: Resolved
[2020-09-18] MEDS: LURASIDONE HCL 80 MG TABLET PO SCH (16:46)
[2020-09-18] MEDS: LEVOFLOXACIN IN DEXTROSE 5 % 750 MG/150 ML BAG IV SCH (18:30)
[2020-09-18] MEDS ORDERED: QUEtiapine FUMARATE 25 MG TABLET ONE (20:09)
[2020-09-18] MEDS: LORazepam 2 MG/ML DISP.SYRIN IV PRN (20:35)
[2020-09-18] MEDS ORDERED: QUEtiapine FUMARATE 25 MG TABLET PO SCH (21:00)
[2020-09-19] MEDS: AMANTADINE HCL 100 MG CAPSULE PO SCH ×3 (00:10→20:33)
[2020-09-19] MEDS: METOPROLOL TARTRATE 50 MG TABLET PO SCH ×4 (00:10→20:33)
[2020-09-19] MEDS: ENOXAPARIN SODIUM 40 MG/0.4 ML SYRG SC SCH ×2 (00:10→20:32)
[2020-09-19] MEDS: QUEtiapine FUMARATE 25 MG TABLET PO ONE ×2 (00:12→00:30)
[2020-09-19] MEDS: LEVOFLOXACIN IN DEXTROSE 5 % 750 MG/150 ML BAG IV SCH (00:50)
[2020-09-19] MEDS: LORazepam 2 MG/ML DISP.SYRIN IV PRN (05:13)
[2020-09-19] MEDS: ACETAMINOPHEN 325 MG TABLET PO PRN ×2 (05:13→11:41)
[2020-09-19 07:02] LABS: Albumin * 2.1 gm/dl (3.4-5.0); BUN/Creatinine Ratio 15.4 (9.0-21.6); Bilirubin, Total 0.4 mg/dL (0.0-1.1); Ca. Corrected For Albumin 8.1 mg/dL (8.4-10.2); Calcium * 6.9 mg/dL (7.9-10.9); Total Protein 5.8 gm/dL (6.2-8.2)
[2020-09-19] MEDS: INSULIN LISPRO 100 UNITS/ML VIAL SC SCH ×4 (08:00→20:40)
[2020-09-19] MEDS: glipiZIDE 5 MG TAB.SR.24H PO SCH (08:02)
[2020-09-19] MEDS: FUROSEMIDE 40 MG TABLET PO SCH (08:37)
[2020-09-19] MEDS: lamoTRIgine 100 MG TABLET PO SCH (08:37)
[2020-09-19] MEDS: POTASSIUM CHLORIDE 10 MEQ TABLET.SA PO SCH (08:37)
[2020-09-19] MEDS: DEXAMETHASONE SODIUM PHOSPHATE 10 MG/ML VIAL IV SCH (08:38)
[2020-09-19] MEDS ORDERED: POTASSIUM CHLORIDE 20 MEQ TABLET.SA PO ONE (11:35)
[2020-09-19] MEDS: CALCIUM CARBONATE 500 MG TAB.CHEW PO SCH (11:39)
[2020-09-19] MEDS: LORazepam 2 MG/ML DISP.SYRIN IV SCH ×4 (11:40→23:26)
--- NOTE | 2020-09-19 12:14 | PN ---
Subjective - Date and Time Seen Date: 09/19/20 Time: 12:01 Subjective Narrative: Patient screams "I wants out of the room" Objective Objective Narrative: 64-year-old male with past medical history of morbid obesity, Down syndrome, hypertension, type 2 diabetes, admitted for COVID-19 pneumonia was evaluated at bedside this morning was found to be afebrile but in emotional distress. Patient has been agitated since yesterday afternoon and has been demanding to leave isolation and out of the room where he is. He says he feels trapped and wants to leave. Patient is currently on antipsychotic but it appears the effects were ineffective in controlling his behavior so Seroquel was added as well as Ativan to manage his anxiety and calm him. Ativan dose was increased this morning and that seems to be helping. I am also stopping the patient's dexamethasone to avoid steroid-induced psychosis or worsening of his agitation. This will also be beneficial to better control his blood sugars which have been elevated since yesterday. The patient also refuses to keep a graphic arts technician on and attempts to rip out his IV so I will take him off telemetry but have his vitals signs checked every couple of hours. He also has trouble keeping his oxygen nasal cannula on and when he takes it off he desats into the lower 80s, but when he case the cannula on he is saturating at 94%. Nursing staff has been struggling to have him keep the nasal cannula in place. He has also maintained stable vitals and blood pressure has been fairly controlled so far so keeping him off of telemetry should not be a huge issues. Labs this morning revealed recurrence of hypokalemia so potassium supplementation was added as well as calcium supplementation to address hypocalcemia. His renal function has improved compared to yesterday and is trending towards his baseline. We will reevaluate with labs in the morning. - Review of Systems Generalized/Overall Review: Reports: No Symptoms Reported EENTM: Reports: No Symptoms Reported Respiratory: Reports: No Symptoms Reported Cardiac: Reports: No Symptoms Reported Abdominal: Reports: No Symptoms Reported Genitourinary Symptoms: Reports: No Symptoms Reported Musculoskeletal Complaints: Reports: No Symptoms Reported Neurological: Reports: Emotional Problems, Pre-existing Deficit Skin: Reports: No Symptoms Reported Endocrine: Reports: No Symptoms Reported - Vitals Vitals: Last Vital Signs Temp 37.2 C 09/19/20 07:00 Pulse 96 01/16/21 08:37 Resp 24 H 09/19/20 07:00 BP 151/72 H 09/19/20 08:37 Pulse Ox 92 L 09/19/20 07:00 - Abnormal Lab Findings Abnormal Lab Findings: Abnormal Lab Results 09/19/20 Range/Units 06:45 Potassium 3.0 L (3.4-4.6) mmol/L Carbon Dioxide 33.0 H (24-32.6) mmol/L BUN 24 H (6-23) mg/dL Creatinine 1.56 H (0.4-1.4) mg/dL Est GFR (Non-Af Amer) 48 L (60-130) mL/min Random Glucose 160 H D (70-110) mg/dL Calcium 6.9 L (7.9-10.9) mg/dL Calcium Adj for Albumin 8.1 L (8.4-10.2) mg/dL AST 82 H (0-48) U/L Total Protein 5.8 L (6.2-8.2) gm/dL Albumin 2.1 L (3.4-5.0) gm/dl - Exam Constitutional: Present: Alert, Well developed, Mild distress, Morbidly obese ENT Exam: Present: normal ENT inspection, hearing grossly normal Neck: Present: non-tender, full range of motion, supple, normal inspection, trachea midline Breasts: Present: Exam deferred, Nontender Respiratory: Present: chest non-tender, lungs clear, no respiratory distress, no accessory muscle use Cardiovascular/Chest: Present: normal peripheral pulses, regular rate, rhythm, no chest tenderness, no edema, no gallop, no JVD, no murmur, no rub Abdomen: Present: soft, nontender, nondistended, no rebound tenderness, no hepatospenomegaly, no masses, obese /Rectal: Present: Exam deferred Extremity: Present: normal range of motion, non-tender, normal inspection, no pedal edema, no calf tenderness, normal capillary refill Skin Exam: Present: normal color, warm/dry, no cyanosis Lymphatic: Present: no adenopathy Neurologic: Present: alert Appearance: Present: impaired insight, impaired recent memory Eye contact: Present: belligerent, uncooperative Thoughts: Present: other Assessment/Plan Plan Narrative: Patient has been administered Ativan at a higher dose and has finally calmed down, he is now asleep and appears to be comfortable. Nasal cannula has been returned to the proper place to maintain adequate saturation and dexamethasone has been discontinued to avoid steroid-induced psychosis. We will check vitals every couple of hours to ensure adequate control and continue to monitor the patient closely. - Problems/Diagnosis (1) Acute hypoxemic respiratory failure due to COVID-19 Problem: Resolved (2) Pneumonia due to COVID-19 virus Problem: Acute (3) History of Down syndrome Problem: Chronic (4) Hypertension Problem: Chronic Qualifiers: Hypertension type: essential hypertension Qualified Code(s): I10 - Essential (primary) hypertension (5) CRF (chronic renal failure) Problem: Chronic Qualifiers: Chronic kidney disease stage: stage 3 (moderate) (6) Anxiety and depression Problem: Chronic (7) Type II diabetes mellitus Problem: Chronic Qualifiers: Diabetes mellitus termite renewal inspector insulin use: without senior living use Diabetes mellitus complication status: with kidney complications Diabetes mellitus complication detail: with chronic kidney disease Chronic kidney disease stage: stage 3 (moderate) (8) Generalized anxiety disorder Problem: Acute (9) Hypoxia Problem: Acute (10) Hypokalemia Problem: Acute (11) Hypocalcemia Problem: Acute
[2020-09-19] MEDS: LURASIDONE HCL 80 MG TABLET PO SCH (16:31)
[2020-09-19] MEDS: QUEtiapine FUMARATE 25 MG TABLET PO SCH (20:33)
[2020-09-20] MEDS: HALOPERIDOL LACTATE 5 MG/ML VIAL IM PRN ×3 (02:36→21:36)
[2020-09-20] MEDS: LORazepam 2 MG/ML DISP.SYRIN IV SCH ×6 (03:54→23:12)
[2020-09-20 07:08] LABS: Albumin * 2.1 gm/dl (3.4-5.0); Anion Gap 13.9 mmol/L (6.8-13.8); Bilirubin, Total 0.5 mg/dL (0.0-1.1); Calcium * 6.8 mg/dL (7.9-10.9); Carbon Dioxide 30.8 mmol/L (24-32.6); Potassium 3.7 mmol/L (3.4-4.6); Total Protein 5.3 gm/dL (6.2-8.2)
[2020-09-20] MEDS: INSULIN LISPRO 100 UNITS/ML VIAL SC SCH ×4 (09:25→20:54)
--- NOTE | 2020-09-20 11:18 | PN ---
Subjective - Date and Time Seen Date: 09/20/20 Time: 11:10 Subjective Narrative: Patient is sleeping at the moment. Objective Objective Narrative: 64-year-old male with past medical history of morbid obesity, Down syn drome, hypertension, type 2 diabetes, admitted for COVID-19 pneumonia was evaluated at bedside this morning was found to be afebrile and in no acute distress. Patient had a rough night, nursing staff reports severe agitation and being uncooperative. He continued to scream I want out help me help me and was very aggressive with the staff. The patient had to be treated with anxiolytics and antipsychotics but the effects were only minimal, at 2 AM I ordered for him to be administered Haldol and for the next dose of Ativan to be increased. That seemed to help because eventually he fell asleep around 3:30 AM and has been calm since. I believe that the patient's worsening behaviors is related to being in isolation for so long on top of him having intellectual disabilities. It is difficult for him to understand why his he is still here outside of his normal setting. For now all we can do is make him comfortable and address any issues that arise until he is discharged to a care facility in a different environment. His blood sugars have improved since dexamethasone was discontinued so we will not make any changes to his insulin regimen and continue to monitor him closely. - Review of Systems Generalized/Overall Review: Reports: No Symptoms Reported EENTM: Reports: No Symptoms Reported Respiratory: Reports: No Symptoms Reported Cardiac: Reports: No Symptoms Reported Abdominal: Reports: No Symptoms Reported Genitourinary Symptoms: Reports: No Symptoms Reported Musculoskeletal Complaints: Reports: No Symptoms Reported Neurological: Reports: Emotional Problems - Agitation and aggressiveness that is worse during the evenings and nights., Pre-existing Deficit Skin: Reports: No Symptoms Reported Endocrine: Reports: No Symptoms Reported - Vitals Vitals: Last Vital Signs Temp 36.2 C 09/20/20 08:54 Pulse 78 09/20/20 08:54 Resp 18 09/20/20 08:54 BP 111/66 09/20/20 08:54 Pulse Ox 97 09/20/20 08:54 - Abnormal Lab Findings Abnormal Lab Findings: Abnormal Lab Results 09/20/20 Range/Units 06:45 Sodium 145 H (132-142) mmol/L Plasma Sodium 145 H (130-142) mmol/L Anion Gap 13.9 H (6.8-13.8) mmol/L BUN 27 H (6-23) mg/dL Creatinine 1.50 H (0.4-1.4) mg/dL Est GFR (Non-Af Amer) 50 L (60-130) mL/min Calcium 6.8 L (7.9-10.9) mg/dL Calcium Adj for Albumin 8.0 L (8.4-10.2) mg/dL AST 95 H (0-48) U/L Total Protein 5.3 L (6.2-8.2) gm/dL Albumin 2.1 L (3.4-5.0) gm/dl - Exam Constitutional: Present: Alert, No distress, Morbidly obese Neck: Present: non-tender Breasts: Present: Exam deferred Respiratory: Present: chest non-tender, lungs clear, no respiratory distress, no accessory muscle use Abdomen: Present: obese /Rectal: Present: Exam deferred Skin Exam: Present: normal color, warm/dry, no cyanosis Lymphatic: Present: no adenopathy Neurologic: Present: disoriented x 3 Appearance: Present: impaired insight, impaired recent memory, impaired remote memory Eye contact: Present: belligerent, uncooperative Thoughts: Present: other Assessment/Plan Plan Narrative: Patient's hypokalemia has resolved after administering potassium supplementation yesterday, his renal function has also improved and is trending toward his baseline. Sodium is mildly elevated on today's labs so repeat CMP was ordered for tomorrow morning for reevaluation of electrolytes. - Problems/Diagnosis (1) Acute hypoxemic respiratory failure due to COVID-19 Problem: Resolved (2) Pneumonia due to COVID-19 virus Problem: Acute (3) History of Down syndrome Problem: Chronic (4) Hypertension Problem: Chronic Qualifiers: Hypertension type: essential hypertension Qualified Code(s): I10 - Essential (primary) hypertension (5) CRF (chronic renal failure) Problem: Chronic Qualifiers: Chronic kidney disease stage: stage 3 (moderate) (6) Anxiety and depression Problem: Chronic (7) Type II diabetes mellitus Problem: Chronic Qualifiers: Diabetes mellitus detention insulin use: without exterminator use Diabetes mellitus complication status: with kidney complications Diabetes mellitus complication detail: with chronic kidney disease Chronic kidney disease stage: stage 3 (moderate) (8) Generalized anxiety disorder Problem: Acute (9) Hypoxia Problem: Acute (10) Hypokalemia Problem: Resolved (11) Hypocalcemia Problem: Acute (12) Electrolyte imbalance Problem: Acute (13) Agitation Problem: Acute
[2020-09-20] MEDS: FUROSEMIDE 40 MG TABLET PO SCH (11:54)
[2020-09-20] MEDS: glipiZIDE 5 MG TAB.SR.24H PO SCH (11:54)
[2020-09-20] MEDS: lamoTRIgine 100 MG TABLET PO SCH ×2 (11:54→17:03)
[2020-09-20] MEDS: POTASSIUM CHLORIDE 10 MEQ TABLET.SA PO SCH (11:54)
[2020-09-20] MEDS: METOPROLOL TARTRATE 50 MG TABLET PO SCH ×3 (11:54→20:58)
[2020-09-20] MEDS: CALCIUM CARBONATE 500 MG TAB.CHEW PO SCH (11:55)
[2020-09-20] MEDS: LURASIDONE HCL 80 MG TABLET PO SCH (17:02)
[2020-09-20] MEDS: AMANTADINE HCL 100 MG CAPSULE PO SCH (20:57)
[2020-09-20] MEDS: QUEtiapine FUMARATE 25 MG TABLET PO SCH (20:58)
[2020-09-20] MEDS: ENOXAPARIN SODIUM 40 MG/0.4 ML SYRG SC SCH (20:58)
[2020-09-21] MEDS: LORazepam 2 MG/ML DISP.SYRIN IV PRN (01:14)
[2020-09-21] MEDS: HALOPERIDOL LACTATE 5 MG/ML VIAL IM PRN ×4 (01:36→16:25)
[2020-09-21] MEDS: LORazepam 2 MG/ML DISP.SYRIN IV SCH ×6 (04:51→23:20)
[2020-09-21 07:15] LABS: Hematocrit 41.2 % (42.0-52.0); Hemoglobin 12.5 gm/dL (13.5-18.0); Mean Cell Volume 95.6 fl (78-100); Mean Corpuscular Hgb Conc 30.3 g/dl (32-36); Mean Platelet Volume 9.6 fl (8-11.3); Platelet Count 231 K/mm3 (150-450); Red Blood Count 4.31 M/mm3 (4.7-6.0); Red Cell Distribution Width 13.5 % (11.5-14.0); White Blood Count 5.6 K/mm3 (4.0-10.5)
[2020-09-21 07:31] LABS: Albumin * 2.4 gm/dl (3.4-5.0); Anion Gap 13.7 mmol/L (6.8-13.8); Bilirubin, Total 0.7 mg/dL (0.0-1.1); Ca. Corrected For Albumin 8.3 mg/dL (8.4-10.2); Calcium * 7.3 mg/dL (7.9-10.9); Carbon Dioxide 34.9 mmol/L (24-32.6); Potassium 4.6 mmol/L (3.4-4.6); Total Protein 5.6 gm/dL (6.2-8.2)
[2020-09-21 07:39] LABS: BUN/Creatinine Ratio 15.9 (9.0-21.6)
[2020-09-21 07:46] LABS: Total Cells Counted 100
[2020-09-21] MEDS: CALCIUM CARBONATE 500 MG TAB.CHEW PO SCH (07:59)
[2020-09-21] MEDS: INSULIN LISPRO 100 UNITS/ML VIAL SC SCH ×4 (07:59→20:34)
[2020-09-21] MEDS: POTASSIUM CHLORIDE 10 MEQ TABLET.SA PO SCH (08:00)
[2020-09-21] MEDS: FUROSEMIDE 40 MG TABLET PO SCH (08:00)
[2020-09-21] MEDS: glipiZIDE 5 MG TAB.SR.24H PO SCH (08:01)
[2020-09-21] MEDS: lamoTRIgine 100 MG TABLET PO SCH ×3 (08:02→20:23)
[2020-09-21] MEDS: METOPROLOL TARTRATE 50 MG TABLET PO SCH ×2 (08:02→20:23)
[2020-09-21 08:03] LABS: Atypical (Reactive) Lymph 2 % (0-2); Band 5 % (0-2.0); Lymphocyte 21 % (20-51); Monocyte 3 % (0-9); Neutrophil 69 % (42-75); Neutrophil # 3.9 K/mm3 (1.3-6.0)
[2020-09-21 08:04] LABS: Platelet Estimate Normal (NORMAL); RBC Morphology Normal (NORMAL)
--- NOTE | 2020-09-21 08:39 | PN ---
Subjective - Date and Time Seen Date: 09/21/20 Time: 08:10 Subjective Narrative: Patient has been inconsolable, yelling or moaning since Monday night, 3 nights ago. Hasn't been eating or drinking much. Spoke with his POA, who reports he does get agitated at times if he feels like he's being kept against his will. Objective Objective Narrative: Unable to obtain - Vitals Vitals: Last Vital Signs Temp 36.8 C 09/21/20 07:43 Pulse 108 H 09/21/20 08:02 Resp 20 09/21/20 07:43 BP 110/71 09/21/20 08:02 Pulse Ox 92 L 09/21/20 07:43 - Abnormal Lab Findings Abnormal Lab Findings: Abnormal Lab Results 09/21/20 09/21/20 Range/Units 06:55 06:55 RBC 4.31 L (4.7-6.0) M/mm3 Hgb 12.5 L (13.5-18.0) gm/dL Hct 41.2 L (42.0-52.0) % MCHC 30.3 L (32-36) g/dl Band Neuts % (Manual) 5 H (0-2.0) % Lymphocytes # (Manual) 1.2 L (1.5-3.5) k/mm3 Sodium 148 H (132-142) mmol/L Plasma Sodium 149 H (130-142) mmol/L Carbon Dioxide 34.9 H (24-32.6) mmol/L BUN 28 H (6-23) mg/dL Creatinine 1.76 H (0.4-1.4) mg/dL Est GFR (Non-Af Amer) 42 L (60-130) mL/min Random Glucose 159 H D (70-110) mg/dL Calcium 7.3 L (7.9-10.9) mg/dL Calcium Adj for Albumin 8.3 L (8.4-10.2) mg/dL AST 69 H (0-48) U/L Total Protein 5.6 L (6.2-8.2) gm/dL Albumin 2.4 L (3.4-5.0) gm/dl - Exam Constitutional: Present: Mild distress - Appears uncomfortable, almost constantly moaning, Morbidly obese Respiratory: Present: normal breath sounds, no respiratory distress, no accessory muscle use Cardiovascular/Chest: Present: tachycardia - Heart rate 104 Abdomen: Present: soft Extremity: Absent: lower extremity edema Thoughts: Present: other - Does not interact or speak Assessment/Plan Plan Narrative: Today is day #9 of admission. His mentation is significantly changed since last week. Discussed with our psych provider, who recommended giving the haldol and ativan together every 4-6 hours as needed, and increasing lamotrigine to bid. Anticipate this is due to him being kept in a room for a week, outside of his normal environment. Quarantine period will be over in 2 days. When he no longer needs oxygen, he would be okay to discharge from our facility for rehabilitation. He will not keep the nasal cannula in place, so having to use oxygen mask. Because of this, would like him to be fully weaned from oxygen prior to discharge. - Problems/Diagnosis (1) Agitation Problem: Acute Narrative: Suspect this is due to his baseline Down's plus bipolar disorder, and being isolated with Covid. Medication adjustments have been made. Unfortunately. He cannot return back to his [facility] long-term due to physical debilitation. If he does not remain calm, will reach out to an outside psychiatrist. (2) Anemia Problem: Acute Narrative: New onset. Normocytic. No active signs of bleed. Occult stool pending. (3) Pneumonia due to COVID-19 virus Problem: Acute (4) Pneumonia Problem: Acute (5) Acute on chronic renal failure Problem: Acute Narrative: He is not taking in sufficient fluids. He ripped his IV out over the weekend, but it has been replaced. He developed fluid overload the first couple of days of this admission. If he continues to not take in beverages, and if kidney function continues to worsen, will gently give a liter of fluid over several hours. (6) Hypoxia Problem: Acute (7) Hypokalemia Problem: Resolved Narrative: He has been getting potassium since he has been here for hypokalemia. His pota ssium this morning is 4.6, so we will stop supplementation. (8) New onset a-fib Problem: Acute Narrative: Continue his home metoprolol, and his POA has agreed to chronic anticoagulation. (9) Hypertension Problem: Chronic Qualifiers: Hypertension type: essential hypertension Qualified Code(s): I10 - Essential (primary) hypertension Narrative: Well controlled. (10) Type II diabetes mellitus Problem: Chronic Qualifiers: Diabetes mellitus termination clerk insulin use: without termination clerk use Diabetes mellitus complication status: with kidney complications Diabetes mellitus complication detail: with chronic kidney disease Chronic kidney disease stage: stage 3 (moderate) Narrative: His glucose has come down a bit since stopping the steroid and adding glipizide. He is not eating much. Should his blood sugar reduced to less than 100, will hold glipizide. (11) Bipolar disorder Problem: Chronic Qualifiers: Active/Remission status: currently active Current bipolar episode type: depressed Current episode severity: mild Qualified Code(s): F31.31 - Bipolar disorder, current episode depressed, mild (12) Down's syndrome Problem: Chronic (13) Acute hypoxemic respiratory failure due to COVID-19 Problem: Resolved (14) Elevated lactic acid level Problem: Resolved (15) Elevated troponin Problem: Resolved
[2020-09-21] MEDS: LURASIDONE HCL 80 MG TABLET PO SCH (20:23)
[2020-09-21] MEDS: QUEtiapine FUMARATE 25 MG TABLET PO SCH (20:23)
[2020-09-21] MEDS: AMANTADINE HCL 100 MG CAPSULE PO SCH (20:24)
[2020-09-21] MEDS: ENOXAPARIN SODIUM 40 MG/0.4 ML SYRG SC SCH (20:33)
[2020-09-22] MEDS: LORazepam 2 MG/ML DISP.SYRIN IV SCH (02:53)
[2020-09-22] MEDS: HALOPERIDOL LACTATE 5 MG/ML VIAL IM PRN (02:53)
[2020-09-22 06:52] LABS: Hematocrit 44.8 % (42.0-52.0); Hemoglobin 13.3 gm/dL (13.5-18.0); Mean Cell Volume 96.1 fl (78-100); Mean Corpuscular Hemoglobin 28.5 pg (27-31); Mean Corpuscular Hgb Conc 29.7 g/dl (32-36); Mean Platelet Volume 10.3 fl (8-11.3); Platelet Count 215 K/mm3 (150-450); Red Blood Count 4.66 M/mm3 (4.7-6.0); Red Cell Distribution Width 13.6 % (11.5-14.0); White Blood Count 6.4 K/mm3 (4.0-10.5)
[2020-09-22 06:56] LABS: Total Cells Counted 100
[2020-09-22] MEDS ORDERED: FUROSEMIDE 10 MG/ML VIAL IV ONE (07:00)
[2020-09-22 07:01] LABS: Albumin * 2.5 gm/dl (3.4-5.0); Anion Gap 23.1 mmol/L (6.8-13.8); BUN/Creatinine Ratio 17.3 (9.0-21.6); Bilirubin, Total 0.7 mg/dL (0.0-1.1); Calcium * 7.1 mg/dL (7.9-10.9); Carbon Dioxide 30.4 mmol/L (24-32.6); Potassium 5.5 mmol/L (3.4-4.6); Total Protein 6.1 gm/dL (6.2-8.2)
[2020-09-22] MEDS ORDERED: DEXTROSE 5%-0.5 NORMAL SALINE 1,000 ML IV PRN (07:25)
[2020-09-22] MEDS ORDERED: HALOPERIDOL LACTATE 5 MG/ML VIAL IM PRN ×2 (07:29→12:54)
[2020-09-22] MEDS: INSULIN LISPRO 100 UNITS/ML VIAL SC SCH ×4 (07:41→20:25)
[2020-09-22 08:06] LABS: Atypical (Reactive) Lymph 3 % (0-2); Band 2 % (0-2.0); Eosinophil 1 % (0-3); Immature Granulocyte 1 (0-1); Lymphocyte 12 % (20-51); Monocyte 5 % (0-9); Neutrophil 76 % (42-75); Neutrophil # 4.9 K/mm3 (1.3-6.0); Platelet Estimate Normal (NORMAL)
[2020-09-22 08:07] LABS: RBC Morphology Normal (NORMAL)
[2020-09-22] MEDS ORDERED: METOPROLOL TARTRATE 1 MG/ML AMPUL IV ONE (09:19)
--- NOTE | 2020-09-22 09:20 | PN ---
Subjective - Date and Time Seen Date: 09/22/20 Time: 09:00 Subjective Narrative: He has been more calm since medication adjustments were made yesterday, but he is sedated and not awake enough to take medicines or eat. Nursing staff has noticed some skin breakdown of his buttocks. His oxygen requirement is not as high as it was when he was agitated. Objective Objective Narrative: unable to obtain from patient - Vitals Vitals: Last Vital Signs Temp 36.6 C 09/22/20 06:50 Pulse 100 09/22/20 07:44 Resp 28 H 09/22/20 06:50 BP 127/62 09/22/20 07:44 Pulse Ox 96 09/22/20 06:50 - Abnormal Lab Findings Abnormal Lab Findings: Abnormal Lab Results 09/22/20 09/22/20 Range/Units 06:25 06:25 RBC 4.66 L (4.7-6.0) M/mm3 Hgb 13.3 L (13.5-18.0) gm/dL MCHC 29.7 L (32-36) g/dl Neutrophils % (Manual) 76 H (42-75) % Lymphocytes % (Manual) 12 L (20-51) % Lymphocytes # (Manual) 0.8 L (1.5-3.5) k/mm3 Atypic/Reactive Lymphs 3 H (0-2) % Sodium 150 H (132-142) mmol/L Plasma Sodium 151 H (130-142) mmol/L Potassium 5.5 H (3.4-4.6) mmol/L Anion Gap 23.1 H (6.8-13.8) mmol/L BUN 26 H (6-23) mg/dL Creatinine 1.50 H (0.4-1.4) mg/dL Est GFR (Non-Af Amer) 50 L (60-130) mL/min Random Glucose 179 H (70-110) mg/dL Calcium 7.1 L (7.9-10.9) mg/dL Calcium Adj for Albumin 8.0 L (8.4-10.2) mg/dL AST 51 H (0-48) U/L Total Protein 6.1 L (6.2-8.2) gm/dL Albumin 2.5 L (3.4-5.0) gm/dl - Exam Constitutional: Present: Mild distress - mild moaning with exhalation, Somnolent, Morbidly obese Respiratory: Present: no respiratory distress Cardiovascular/Chest: Present: tachycardia - HR 120's Abdomen: Present: soft Extremity: Absent: lower extremity edema Skin Exam: Present: other - bruising at previous IV sites Eye contact: Present: other - does not interact Assessment/Plan - Problems/Diagnosis (1) Agitation Problem: Acute Narrative: Likely from being kept in an isolation room for several days. Could have also been due to steroids, which were completed over the weekend. Improved with twice daily Lamictal, 3 mg Haldol +0.5 mg Ativan given together every 4-6 hours as needed, +2 mg Ativan every 4 hours scheduled. He did not take his Lamictal last night because he was sedated. We will decrease Haldol to 2 mg and stop the scheduled Ativan. We will increase as needed Ativan to 1 mg, still to be given together with the 2 mg of Haldol. He does not need as much oxygen when he is more calm. We will hopefully be able to decrease these sedating medications in the next couple of days in anticipation for discharge. (2) Hypernatremia Problem: Acute Narrative: Sodium has increased over the last few days to 150 this morning. Will give one bag of D5 1/2 NS and recheck tomorrow. Likely due to decreased po intake. (3) Stage II pressure ulcer of buttock Problem: Acute Narrative: We will add zinc oxide 3 times daily and Mepilex. He has not been out of bed for several days. He has been too agitated to work with physical therapy. Would like to restart this as soon as possible when he is calm and more awake. (4) Anemia Problem: Acute Narrative: Improved from yesterday, up to 13.3 from 12.5. May be due to reduced renal function and reduced po intake. (5) Pneumonia due to COVID-19 virus Problem: Acute Narrative: Today is day #10 of hospitalization after [facility], and tested positive for COVID. He's been afebrile since 09/16. Is using 2 L via oxymask. he could not tolerate the nasal canula. He will be ok to DC to a NH when he is no longer needing oxygen, and is calm. (6) Pneumonia Problem: Acute (7) Acute on chronic renal failure Problem: Acute Narrative: Likely from reduced po intake. will need to be careful with fluid replacement, because he became fluid overloaded early this admission. (8) Hypoxia Problem: Acute (9) Hypokalemia Problem: Resolved (10) New onset a-fib Problem: Acute Narrative: He is prescribed metoprolol at baseline, and will continue. He did not take po meds last night, so will give IV lopressor until he can take his meds. Sister in law agrees to continue anticoagulation. (11) Hypertension Problem: Chronic Qualifiers: Hypertension type: essential hypertension Qualified Code(s): I10 - Essential (primary) hypertension (12) Type II diabetes mellitus Problem: Chronic Qualifiers: Diabetes mellitus long-term insulin use: without terminal press operator use Diabetes mellitus complication status: with kidney complications Diabetes mellitus complication detail: with chronic kidney disease Chronic kidney disease stage: stage 3 (moderate) Narrative: Reduced po intake. Can hold glipizide while he's more sedated and not eating, and continue SSI. (13) Bipolar disorder Problem: Chronic Qualifiers: Active/Remission status: currently active Current bipolar episode type: depressed Current episode severity: mild Qualified Code(s): F31.31 - Bipolar disorder, current episode depressed, mild (14) Down's syndrome Problem: Chronic (15) Acute hypoxemic respiratory failure due to COVID-19 Problem: Resolved (16) Elevated lactic acid level Problem: Resolved (17) Elevated troponin Problem: Resolved
[2020-09-22] MEDS: glipiZIDE 5 MG TAB.SR.24H PO SCH (09:29)
[2020-09-22] MEDS: lamoTRIgine 100 MG TABLET PO SCH ×2 (09:30→20:13)
[2020-09-22] MEDS: CALCIUM CARBONATE 500 MG TAB.CHEW PO SCH (09:30)
[2020-09-22] MEDS: METOPROLOL TARTRATE 50 MG TABLET PO SCH ×2 (09:30→20:13)
[2020-09-22] MEDS: LORazepam 2 MG/ML DISP.SYRIN IV PRN ×3 (09:39→22:36)
[2020-09-22] MEDS: ZINC OXIDE 60 APPL TUBE TP SCH ×3 (09:40→16:01)
[2020-09-22] MEDS: LURASIDONE HCL 80 MG TABLET PO SCH (16:01)
[2020-09-22] MEDS ORDERED: METOPROLOL TARTRATE 1 MG/ML AMPUL IV PRN (17:43)
[2020-09-22] MEDS: AMANTADINE HCL 100 MG CAPSULE PO SCH (20:13)
[2020-09-22] MEDS: ENOXAPARIN SODIUM 40 MG/0.4 ML SYRG SC SCH (20:33)
[2020-09-23] MEDS: LORazepam 2 MG/ML DISP.SYRIN IV PRN (02:39)
[2020-09-23 07:56] LABS: Hematocrit 41.8 % (42.0-52.0); Hemoglobin 12.7 gm/dL (13.5-18.0); Mean Cell Volume 94.6 fl (78-100); Mean Corpuscular Hemoglobin 28.7 pg (27-31); Mean Corpuscular Hgb Conc 30.4 g/dl (32-36); Mean Platelet Volume 9.5 fl (8-11.3); Platelet Count 231 K/mm3 (150-450); Red Blood Count 4.42 M/mm3 (4.7-6.0); Red Cell Distribution Width 13.6 % (11.5-14.0); White Blood Count 6.3 K/mm3 (4.0-10.5)
[2020-09-23 07:59] LABS: Total Cells Counted 100
[2020-09-23 08:12] LABS: Albumin * 2.3 gm/dl (3.4-5.0); Anion Gap 12.2 mmol/L (6.8-13.8); BUN/Creatinine Ratio 14.2 (9.0-21.6); Bilirubin, Total 0.8 mg/dL (0.0-1.1); Ca. Corrected For Albumin 8.3 mg/dL (8.4-10.2); Calcium * 7.3 mg/dL (7.9-10.9); Carbon Dioxide 34.7 mmol/L (24-32.6); Potassium 3.9 mmol/L (3.4-4.6); Total Protein 6.6 gm/dL (6.2-8.2)
[2020-09-23] MEDS: INSULIN LISPRO 100 UNITS/ML VIAL SC SCH ×4 (08:28→20:57)
[2020-09-23] MEDS: glipiZIDE 5 MG TAB.SR.24H PO SCH (08:28)
[2020-09-23] MEDS: METOPROLOL TARTRATE 50 MG TABLET PO SCH ×2 (08:29→20:02)
[2020-09-23] MEDS: CALCIUM CARBONATE 500 MG TAB.CHEW PO SCH (08:29)
--- NOTE | 2020-09-23 08:32 | PN ---
Subjective - Date and Time Seen Date: 09/23/20 Time: 08:05 Subjective Narrative: He did take pm meds last night, but is not awake enough for breakfast or meds this morning. Continuously wimpering with exhalation. Haldol used last very early yesterday morning. Objective Objective Narrative: unable to contribute - Vitals Vitals: Last Vital Signs Temp 37.6 C 09/23/20 07:59 Pulse 112 H 09/23/20 07:59 Resp 23 H 09/23/20 07:59 BP 123/84 09/23/20 07:59 Pulse Ox 94 09/23/20 07:59 - Abnormal Lab Findings Abnormal Lab Findings: Abnormal Lab Results 09/23/20 09/23/20 Range/Units 07:48 07:48 RBC 4.42 L (4.7-6.0) M/mm3 Hgb 12.7 L (13.5-18.0) gm/dL Hct 41.8 L (42.0-52.0) % MCHC 30.4 L (32-36) g/dl Sodium 149 H (132-142) mmol/L Plasma Sodium 151 H (130-142) mmol/L Carbon Dioxide 34.7 H (24-32.6) mmol/L BUN 25 H (6-23) mg/dL Creatinine 1.76 H (0.4-1.4) mg/dL Est GFR (Non-Af Amer) 42 L (60-130) mL/min Random Glucose 198 H (70-110) mg/dL Calcium 7.3 L (7.9-10.9) mg/dL Calcium Adj for Albumin 8.3 L (8.4-10.2) mg/dL Albumin 2.3 L (3.4-5.0) gm/dl Assessment/Plan Plan Narrative: He is unable to wean from oxygen. Sedating meds have been reduced, but he has not regained his mentation from last week. Is taking in very limited po intake, and has only taken po meds once in the last few days, which was last evening. Discussed this with his brother and sister in law, that I am starting to wonder if he will be able to return to his previous level of function. Would like for his brother, Deb, to come visit, to see if that would help Leonard. If he is unable to wean from oxygen, and does not regain his mentation in the next couple of days, I have concern that he will not improve. Family wondered if offering foods he likes could be helpful, like [employer] fish sandwiches, and I feel like that's entirely appropriate. OK to offer any food he'll agree to eat. Will limit needle sticks and interventions, to avoid further agitation. - Problems/Diagnosis (1) Agitation Problem: Resolved (2) Hypernatremia Problem: Acute Narrative: Essentially unchanged from yesterday after 1L D5 1/2 NS, with sodium of 149 today. Likely due to poor po intake. (3) Stage II pressure ulcer of buttock Problem: Acute Narrative: continue zinc oxide and mepilex. (4) Anemia Problem: Acute Narrative: mild, not progressing. Hgb 12.7 today. likely due to reduced renal function and poor po intake. (5) Pneumonia due to COVID-19 virus Problem: Acute Narrative: His oxygen requirement is not changing. He is currently bedbound, and I have concern he may develop a secondary bacterial pneumonia since he's no longer physically active. (6) Acute on chronic renal failure Problem: Acute Narrative: Likely due to decreased po intake. Will need to administer IV fluids carefully, because he developed fluid overload early this admission, and he's not ambulating at all. (7) Hypoxia Problem: Acute (8) Hypokalemia Problem: Resolved (9) New onset a-fib Problem: Acute Narrative: He converted to sinus rhythm yesterday. (10) Hypertension Problem: Chronic Qualifiers: Hypertension type: essential hypertension Qualified Code(s): I10 - Essential (primary) hypertension (11) Type II diabetes mellitus Problem: Chronic Qualifiers: Diabetes mellitus watermaster insulin use: without watermaster use Diabetes mellitus complication status: with kidney complications Diabetes mellitus complication detail: with chronic kidney disease Chronic kidney disease stage: stage 3 (moderate) (12) Bipolar disorder Problem: Chronic Qualifiers: Active/Remission status: currently active Current bipolar episode type: depressed Current episode severity: mild Qualified Code(s): F31.31 - Bipolar disorder, current episode depressed, mild (13) Down's syndrome Problem: Chronic (14) Acute hypoxemic respiratory failure due to COVID-19 Problem: Resolved (15) Elevated lactic acid level Problem: Resolved (16) Elevated troponin Problem: Resolved
[2020-09-23] MEDS: FUROSEMIDE 40 MG TABLET PO SCH (08:45)
[2020-09-23] MEDS: lamoTRIgine 100 MG TABLET PO SCH ×2 (08:45→20:02)
[2020-09-23 08:55] LABS: Atypical (Reactive) Lymph 4 % (0-2); Band 1 % (0-2.0); Immature Granulocyte 1 (0-1); Lymphocyte 10 % (20-51); Monocyte 8 % (0-9); Neutrophil 76 % (42-75); Neutrophil # 4.8 K/mm3 (1.3-6.0); Platelet Estimate Normal (NORMAL)
[2020-09-23 08:56] LABS: RBC Morphology Normal (NORMAL)
[2020-09-23] MEDS: ZINC OXIDE 60 APPL TUBE TP SCH ×3 (09:13→16:56)
[2020-09-23] MEDS ORDERED: SCOPOLAMINE HYDROBROMIDE 1.5 MG PATC TD SCH (12:30)
[2020-09-23] MEDS ORDERED: METOPROLOL TARTRATE 1 MG/ML AMPUL IV PRN (15:53)
[2020-09-23] MEDS: LURASIDONE HCL 80 MG TABLET PO SCH (16:18)
[2020-09-23] MEDS: amLODIPine BESYLATE 5 MG TABLET PO SCH (20:02)
[2020-09-23] MEDS: AMANTADINE HCL 100 MG CAPSULE PO SCH (20:03)
[2020-09-23] MEDS: ENOXAPARIN SODIUM 40 MG/0.4 ML SYRG SC SCH (20:35)
[2020-09-24] MEDS: ACETAMINOPHEN 325 MG TABLET PO PRN (05:07)
[2020-09-24] MEDS: glipiZIDE 5 MG TAB.SR.24H PO SCH (07:31)
[2020-09-24] MEDS: INSULIN LISPRO 100 UNITS/ML VIAL SC SCH ×2 (07:33→13:40)
[2020-09-24 08:09] LABS: Hematocrit 41.9 % (42.0-52.0); Hemoglobin 12.4 gm/dL (13.5-18.0); Mean Cell Volume 95.9 fl (78-100); Mean Corpuscular Hemoglobin 28.4 pg (27-31); Mean Corpuscular Hgb Conc 29.6 g/dl (32-36); Mean Platelet Volume 9.6 fl (8-11.3); Platelet Count 218 K/mm3 (150-450); Red Blood Count 4.37 M/mm3 (4.7-6.0); Red Cell Distribution Width 13.7 % (11.5-14.0); White Blood Count 6.3 K/mm3 (4.0-10.5)
[2020-09-24 08:12] LABS: Total Cells Counted 100
[2020-09-24 08:30] LABS: Albumin * 2.3 gm/dl (3.4-5.0); Anion Gap 9.5 mmol/L (6.8-13.8); BUN/Creatinine Ratio 16.1 (9.0-21.6); Bilirubin, Total 0.8 mg/dL (0.0-1.1); Ca. Corrected For Albumin 8.5 mg/dL (8.4-10.2); Calcium * 7.5 mg/dL (7.9-10.9); Carbon Dioxide 34.9 mmol/L (24-32.6); Potassium 3.4 mmol/L (3.4-4.6); Total Protein 6.7 gm/dL (6.2-8.2)
--- NOTE | 2020-09-24 08:55 | PN ---
Subjective - Date and Time Seen Date: 09/24/20 Time: 08:15 Subjective Narrative: He is not waking up to eat or take meds. Is more calm. Hasn't had ativan in the last 2 shifts. Is urinating. Tried to reduce O2 to 1L this morning, but his oxygen decreased to the upper 80's. Objective Objective Narrative: unable to obtain. - Vitals Vitals: Last Vital Signs Temp 37.3 C 09/24/20 07:21 Pulse 111 H 09/24/20 07:21 Resp 20 09/24/20 07:21 BP 111/41 09/24/20 07:21 Pulse Ox 88 L 09/24/20 08:12 - Abnormal Lab Findings Abnormal Lab Findings: Abnormal Lab Results 09/23/20 09/24/20 09/24/20 Range/Units 07:48 08:00 08:00 RBC 4.37 L (4.7-6.0) M/mm3 Hgb 12.4 L (13.5-18.0) gm/dL Hct 41.9 L (42.0-52.0) % MCHC 29.6 L (32-36) g/dl Neutrophils % (Manual) 76 H (42-75) % Lymphocytes % (Manual) 10 L (20-51) % Lymphocytes # (Manual) 0.6 L (1.5-3.5) k/mm3 Atypic/Reactive Lymphs 4 H (0-2) % Sodium 151 H (132-142) mmol/L Plasma Sodium 153 H (130-142) mmol/L Chloride 110 H (97-106) mmol/L Carbon Dioxide 34.9 H (24-32.6) mmol/L BUN 25 H (6-23) mg/dL Creatinine 1.55 H (0.4-1.4) mg/dL Est GFR (Non-Af Amer) 48 L (60-130) mL/min Random Glucose 204 H (70-110) mg/dL Calcium 7.5 L (7.9-10.9) mg/dL Albumin 2.3 L (3.4-5.0) gm/dl - Exam Constitutional: Present: Obtunded, Morbidly obese Respiratory: Present: normal breath sounds, no accessory muscle use, other - using 1L via oxymask Cardiovascular/Chest: Present: regular rate, rhythm Abdomen: Present: soft Extremity: Absent: lower extremity edema Skin Exam: Present: other - numerous superficial excoriations on abdomen Assessment/Plan Plan Narrative: He has not received any ativan for agitation since very early yesterday morning, but is not waking up to eat. I believe the stress of being in a COVID isolation room, with his baseline Down syndrome and bipolar disorder, is the source of his mentation. I have doubts that he will return to previous function. He has not eaten or drank much in several days. I feel like the IV, oxymask, and mitts are a discomfort to him. Oxygen requirement is low, but he does decrease without it. There is a chance that removing the IV, mask, and mitts may improve his quality of life. Will discuss pursuing comfort measures with his family. He has been calm, so I believe he would be appropriate to DC to a nursing facility with comfort measures if family were to agree. - Problems/Diagnosis (1) Agitation Problem: Resolved (2) Hypernatremia Problem: Acute (3) Stage II pressure ulcer of buttock Problem: Acute (4) Anemia Problem: Acute (5) Pneumonia due to COVID-19 virus Problem: Acute (6) Acute on chronic renal failure Problem: Acute (7) Hypoxia Problem: Acute (8) Hypokalemia Problem: Resolved (9) New onset a-fib Problem: Acute (10) Hypertension Problem: Chronic Qualifiers: Hypertension type: essential hypertension Qualified Code(s): I10 - Essential (primary) hypertension (11) Type II diabetes mellitus Problem: Chronic Qualifiers: Diabetes mellitus longterm insulin use: without intermodal customer service use Diabetes m ellitus complication status: with kidney complications Diabetes mellitus complication detail: with chronic kidney disease Chronic kidney disease stage: stage 3 (moderate) (12) Bipolar disorder Problem: Chronic Qualifiers: Active/Remission status: currently active Current bipolar episode type: depressed Current episode severity: mild Qualified Code(s): F31.31 - Bipolar disorder, current episode depressed, mild (13) Down's syndrome Problem: Chronic (14) Acute hypoxemic respiratory failure due to COVID-19 Problem: Resolved (15) Elevated lactic acid level Problem: Resolved (16) Elevated troponin Problem: Resolved
[2020-09-24] MEDS ORDERED: FUROSEMIDE 40 MG TABLET PO SCH (09:00)
[2020-09-24 09:35] VITALS: BP 133/70
[2020-09-24] MEDS: FUROSEMIDE 40 MG TABLET PO SCH (09:36)
[2020-09-24] MEDS: lamoTRIgine 100 MG TABLET PO SCH ×2 (09:37→20:16)
[2020-09-24] MEDS: METOPROLOL TARTRATE 50 MG TABLET PO SCH ×2 (09:37→20:16)
[2020-09-24] MEDS: amLODIPine BESYLATE 5 MG TABLET PO SCH (09:37)
[2020-09-24] MEDS: CALCIUM CARBONATE 500 MG TAB.CHEW PO SCH (09:37)
[2020-09-24] MEDS: ZINC OXIDE 60 APPL TUBE TP SCH ×3 (09:37→17:30)
[2020-09-24 09:43] LABS: Atypical (Reactive) Lymph 4 % (0-2); Lymphocyte 10 % (20-51); Monocyte 11 % (0-9); Neutrophil 75 % (42-75); Neutrophil # 4.7 K/mm3 (1.3-6.0); Platelet Estimate Normal (NORMAL); RBC Morphology Normal (NORMAL)
--- NOTE | 2020-09-24 09:57 | PN ---
[facility] Note - Interim Date: 09/24/20 Time: :55 Narrative: 09/24/20 09:55 Discussed his status with his brother and sister in law, Deb and Ceci. They agree that the interventions that we are trying do not seem beneficial, and are willing to transition to comfort measures, and hopefully discharge him to a [facility]. Will remove the oxygen, IV, heart monitor, and mitts, and use liquid meds.
[2020-09-24] MEDS: LORAZEPAM 2 MG/ML ORAL.CONC PO PRN ×2 (14:22→20:15)
[2020-09-24] MEDS: LORazepam 2 MG/ML DISP.SYRIN IV PRN (16:08)
[2020-09-24] MEDS: LURASIDONE HCL 80 MG TABLET PO SCH (17:30)
[2020-09-24] MEDS: HALOPERIDOL LACTATE 2 MG/ML ORAL.CONC PO PRN (20:15)
[2020-09-24] MEDS: AMANTADINE HCL 100 MG CAPSULE PO SCH (20:16)
[2020-09-25] MEDS: LORAZEPAM 2 MG/ML ORAL.CONC PO PRN ×2 (02:24→10:35)
[2020-09-25] MEDS: HALOPERIDOL LACTATE 2 MG/ML ORAL.CONC PO PRN (06:20)
[2020-09-25 06:41] LABS: Hematocrit 47.8 % (42.0-52.0); Mean Cell Volume 96.4 fl (78-100); Mean Corpuscular Hemoglobin 28.2 pg (27-31); Mean Corpuscular Hgb Conc 29.3 g/dl (32-36); Mean Platelet Volume 10.8 fl (8-11.3); Platelet Count 186 K/mm3 (150-450); Red Blood Count 4.96 M/mm3 (4.7-6.0); Red Cell Distribution Width 13.9 % (11.5-14.0); White Blood Count 8.1 K/mm3 (4.0-10.5)
[2020-09-25 06:56] LABS: Albumin * 2.6 gm/dl (3.4-5.0); Anion Gap 11.6 mmol/L (6.8-13.8); BUN/Creatinine Ratio 16.2 (9.0-21.6); Bilirubin, Total 0.8 mg/dL (0.0-1.1); Ca. Corrected For Albumin 8.4 mg/dL (8.4-10.2); Calcium * 7.6 mg/dL (7.9-10.9); Potassium 3.6 mmol/L (3.4-4.6); Total Protein 7.1 gm/dL (6.2-8.2)
[2020-09-25 07:00] LABS: Total Cells Counted 100
[2020-09-25 07:44] LABS: Eosinophil 1 % (0-3); Lymphocyte 15 % (20-51); Monocyte 9 % (0-9); Neutrophil 75 % (42-75); Neutrophil # 6.1 K/mm3 (1.3-6.0)
[2020-09-25 07:45] LABS: Platelet Estimate Normal (NORMAL); RBC Morphology Normal (NORMAL)
[2020-09-25] MEDS ORDERED: MORPHINE SULFATE 10 MG/0.5 ML SYRINGE PO PRN (08:21)
[2020-09-25] MEDS ORDERED: HALOPERIDOL LACTATE 2 MG/ML ORAL.CONC PO PRN (08:57)
--- NOTE | 2020-09-25 08:59 | DS ---
(1) Encephalopathy due to 2019 novel coronavirus Problem: Suspected (2) Pneumonia due to COVID-19 virus Problem: Acute (3) Agitation Problem: Acute (4) Hypernatremia Problem: Acute (5) Stage II pressure ulcer of buttock Problem: Acute (6) Anemia Problem: Resolved (7) Acute on chronic renal failure Problem: Acute (8) Hypoxia Problem: Acute (9) Hypokalemia Problem: Resolved (10) New onset a-fib Problem: Acute (11) Hypertension Problem: Chronic Qualifiers: Hypertension type: essential hypertension Qualified Code(s): I10 - Essential (primary) hypertension (12) Type II diabetes mellitus Problem: Chronic Qualifiers: Diabetes mellitus buttermaker helper insulin use: without buttermaker helper use Diabetes mellitus complication status: with kidney complications Diabetes mellitus complication detail: with chronic kidney disease Chronic kidney disease stage: stage 3 (moderate) (13) Bipolar disorder Problem: Chronic Qualifiers: Active/Remission status: currently active Current bipolar episode type: depressed Current episode severity: mild Qualified Code(s): F31.31 - Bipolar disorder, current episode depressed, mild (14) Down's syndrome Problem: Chronic (15) Acute hypoxemic respiratory failure due to COVID-19 Problem: Resolved (16) Elevated lactic acid level Problem: Resolved (17) Elevated troponin Problem: Resolved Date of Discharge:: 09/25/20 Hospital Course: He is a resident on an [facility] senior care. He has a PMHx of Down syndrome with intellectual disability, renal disease, diabetes, hypertension, and bipolar disorder. He reportedly does not converse at baseline. On the day of admission, he was not acting himself, and was found on the floor next to his bed. ED workup showed new onset atrial fibrillation, slight troponin elevation, lactate elevated at 3.4, hypokalemia with potassium of 2.6. COVID test was positive, and he was started on decadron and levaquin. He initially improved after fluids, but after several days, his mentation acutely changed and he was aggressive. He pulled out his IV and the oxygen mask, so soft mitts were placed. He calmed with a regimen of ativan, haldol, and doubling his home dose of lamictal, but he did not regain his previous level of mentation. He stopped eating and drinking, and could no longer sit in his chair. He stayed afebrile and WBC did not increase. He developed a stage II ulcer of his left buttock, covered with zinc oxide and mepilex. He was oxygenating in the 90's on 1-2 L, and decreased to the 80's when oxygen was removed. With his Down syndrome, it was felt that he could not understand the interventions being used. He stayed in this state for a few days, and discussions were held with his family regarding his poor prognosis. This presentation is felt to be a combination of his serious baseline medical problems, plus COVID pneumonia, plus the effects of isolation. He was not improving with interventions, and family agreed to pursue comfort measures. He will discharge to [facility] and hospice talks were started. Will continue 1 mg haldol and 1 mg ativan q4h prn, and 2 mg morphine q4h prn. Procedures Performed: none Results and Findings: Lab Pending Results 09/13/20 17:46: Urine Color Yellow, Urine Appearance Slightly cloudy, Urine pH 6.0, Ur Specific Counce 1.020, Urine Protein >=300 H, Urine Glucose (UA) 250 H, Urine Ketones Negative, Urine Blood 25 H, Urine Nitrate Negative, Urine Bilirubin Negative, Urine Urobilinogen Normal, Ur Leukocyte Esterase Negative, Urine RBC None seen, Urine WBC 0-5, Ur Epithelial Cells 0-5, Amorphous Sediment Few - 1+, Urine Bacteria None seen, Fine Granular Casts 0-5 H, Urine Culture Comments No culture indicated 09/13/20 18:24: WBC 6.2, RBC 4.67 L, Hgb 13.6, Hct 41.9 L, MCV 89.7, MCH 29.1, MCHC 32.5, RDW 12.9, Plt Count 150, MPV 9.7, Immature Gran % (Auto) 1.10 H, Immature Gran # (Auto) 0.07 H, Neutrophils % 86.5 H, Lymphocytes % 5.2 L, Monocytes % 6.9, Eosinophils % 0.0, Basophils % 0.3, Nucleated RBC % 0.0, Neutrophils # 5.4, Lymphocytes # 0.32 L, Monocytes # 0.4, Eosinophils # 0.0, Absolute Basophils 0.0 09/13/20 18:24: Sodium 135, Plasma Sodium 139, Potassium 2.6 L D, Chloride 97, Carbon Dioxide 30.2, Anion Gap 10.4, BUN 14, Creatinine 1.78 H, Est GFR (Non-Af Amer) 41 L, BUN/Creatinine Ratio 7.9 L, Random Glucose 332 H, Calcium 7.6 L, Calcium Adj for Albumin 8.1 L, Total Bilirubin 0.4, AST 20, ALT 25, Alkaline Phosphatase 132, Creatine Kinase 164, Troponin I 0.113 H*, B-Natriuretic Peptide 3129 H, Total Protein 6.8, Albumin 3.0 L 09/13/20 18:24: Lactic Acid, Venous 3.4 H* 09/13/20 18:24: Magnesium 1.3 09/13/20 19:17: pCO2 37.4, pO2 90.2, HCO3 27.8, Total CO2 28.9 H, Base Excess 4.4 H, ABG pH 7.49 H, ABG O2 Sat (Measured) 97.5 09/13/20 19:30: SARS-CoV-2 (PCR) Detected H 09/13/20 21:10: Lactic Acid, Venous 1.6 09/13/20 22:14: Troponin I 0.251 H* 09/14/20 01:05: Troponin I 0.311 H* 09/14/20 05:00: WBC 5.3, RBC 4.65 L, Hgb 13.5, Hct 41.6 L, MCV 89.5, MCH 29.0, MCHC 32.5, RDW 12.8, Plt Count 146 L, MPV 9.8, Immature Gran % (Auto) 0.80 H, Immature Gran # (Auto) 0.04 H, Neutrophils % 83.6 H, Lymphocytes % 7.5 L, Monocytes % 7.7, Eosinophils % 0.0, Basophils % 0.4, Nucleated RBC % 0.0, Neutrophils # 4.4, Lymphocytes # 0.40 L, Monocytes # 0.4, Eosinophils # 0.0, Absolute Basophils 0.0 09/14/20 05:00: Sodium 142, Plasma Sodium 144 H, Potassium 2.6 L, Chloride 100, Carbon Dioxide 30.3, Anion Gap 14.3 H, BUN 13, Creatinine 1.47 H, Est GFR (Non- Af Amer) 51 L D, BUN/Creatinine Ratio 8.8 L, Random Glucose 230 H D, Calcium 6.9 L, Calcium Adj for Albumin 7.5 L, Total Bilirubin 0.4, AST 64 H, ALT 29, Alkaline Phosphatase 129, Total Protein 6.2, Albumin 2.9 L 09/14/20 05:00: Troponin I 0.302 H* 09/14/20 06:30: Phosphorus 2.1 L D 09/14/20 15:41: Sodium 140, Plasma Sodium 144 H, Potassium 3.5 D, Chloride 101, Carbon Dioxide 28.8, Anion Gap 13.7, BUN 12, Creatinine 1.43 H, Est GFR (Non-Af Amer) 53 L, BUN/Creatinine Ratio 8.4 L, Random Glucose 344 H D, Calcium 7.2 L 09/15/20 06:15: Sodium 141, Plasma Sodium 143 H, Potassium 3.3 L, Chloride 102, Carbon Dioxide 25.7, Anion Gap 16.6 H, BUN 15, Creatinine 1.24, Est GFR (Non-Af Amer) 63, BUN/Creatinine Ratio 12.1, Random Glucose 238 H D, Calcium 6.2 L, Calcium Adj for Albumin 7.1 L, Total Bilirubin 0.5, AST 124 H, ALT 36, Alkaline Phosphatase 107, Total Protein 5.8 L, Albumin 2.5 L 09/17/20 10:54: WBC 6.9, RBC 5.10, Hgb 14.7, Hct 47.1, MCV 92.4, MCH 28.8, MCHC 31.2 L, RDW 13.1, Plt Count 169, MPV 10.0, Neutrophils % (Manual) 80 H, Band Neuts % (Manual) 11 H, Lymphocytes % (Manual) 7 L, Monocytes % (Manual) 1, Immature Granulocytes 1, Neutrophils # (Manual) 5.5, Lymphocytes # (Manual) 0.5 L, Monocytes # (Manual) 0.1, Toxic Vacuolation Trace, Platelet Estimate Normal, RBC Morphology Normal 09/17/20 10:54: Sodium 138, Plasma Sodium 142, Potassium 3.5, Chloride 97, Carbon Dioxide 34.4 H, Anion Gap 10.1, BUN 27 H D, Creatinine 1.71 H D, Est GFR (Non-Af Amer) 43 L D, BUN/Creatinine Ratio 15.8, Random Glucose 326 H D, Calcium 7.2 L, Calcium Adj for Albumin 7.9 L, Total Bilirubin 0.4, AST 100 H, ALT 35, Alkaline Phosphatase 104, Total Protein 7.1, Albumin 2.7 L 09/19/20 06:45: Sodium 141, Plasma Sodium 142, Potassium 3.0 L, Chloride 100, Carbon Dioxide 33.0 H, Anion Gap 11.0, BUN 24 H, Creatinine 1.56 H, Est GFR (Non-Af Amer) 48 L, BUN/Creatinine Ratio 15.4, Random Glucose 160 H D, Calcium 6.9 L, Calcium Adj for Albumin 8.1 L, Total Bilirubin 0.4, AST 82 H, ALT 30, Alkaline Phosphatase 80, Total Protein 5.8 L, Albumin 2.1 L 09/20/20 06:45: Sodium 145 H, Plasma Sodium 145 H, Potassium 3.7 D, Chloride 104, Carbon Dioxide 30.8, Anion Gap 13.9 H, BUN 27 H, Creatinine 1.50 H, Est GFR (Non-Af Amer) 50 L, BUN/Creatinine Ratio 18.0, Random Glucose 101 D, Calcium 6.8 L, Calcium Adj for Albumin 8.0 L, Total Bilirubin 0.5, AST 95 H, ALT 33, Alkaline Phosphatase 77, Total Protein 5.3 L, Albumin 2.1 L 09/21/20 06:55: Sodium 148 H, Plasma Sodium 149 H, Potassium 4.6 D, Chloride 104, Carbon Dioxide 34.9 H, Anion Gap 13.7, BUN 28 H, Creatinine 1.76 H, Est GFR (Non-Af Amer) 42 L, BUN/Creatinine Ratio 15.9, Random Glucose 159 H D, Calcium 7.3 L, Calcium Adj for Albumin 8.3 L, Total Bilirubin 0.7, AST 69 H, ALT 32, Alkaline Phosphatase 84, Total Protein 5.6 L, Albumin 2.4 L 09/21/20 06:55: WBC 5.6, RBC 4.31 L, Hgb 12.5 L, Hct 41.2 L, MCV 95.6, MCH 29.0, MCHC 30.3 L, RDW 13.5, Plt Count 231, MPV 9.6, Neutrophils % (Manual) 69, Band Neuts % (Manual) 5 H, Lymphocytes % (Manual) 21, Monocytes % (Manual) 3, Neutrophils # (Manual) 3.9, Lymphocytes # (Manual) 1.2 L, Monocytes # (Manual) 0.2, Atypic/Reactive Lymphs 2, Platelet Estimate Normal, RBC Morphology Normal 09/22/20 06:25: Sodium 150 H, Plasma Sodium 151 H, Potassium 5.5 H, Chloride 102, Carbon Dioxide 30.4, Anion Gap 23.1 H, BUN 26 H, Creatinine 1.50 H, Est GFR (Non-Af Amer) 50 L, BUN/Creatinine Ratio 17.3, Random Glucose 179 H, Calcium 7.1 L, Calcium Adj for Albumin 8.0 L, Total Bilirubin 0.7, AST 51 H, ALT 30, Alkaline Phosphatase 93, Total Protein 6.1 L, Albumin 2.5 L 09/22/20 06:25: WBC 6.4, RBC 4.66 L, Hgb 13.3 L, Hct 44.8, MCV 96.1, MCH 28.5, MCHC 29.7 L, RDW 13.6, Plt Count 215, MPV 10.3, Neutrophils % (Manual) 76 H, Band Neuts % (Manual) 2, Lymphocytes % (Manual) 12 L, Monocytes % (Manual) 5, Eosinophils % (Manual) 1, Immature Granulocytes 1, Neutrophils # (Manual) 4.9, Lymphocytes # (Manual) 0.8 L, Monocytes # (Manual) 0.3, Eosinophils # (Manual) 0.1, Atypic/Reactive Lymphs 3 H, Platelet Estimate Normal, RBC Morphology Normal 09/23/20 07:48: Sodium 149 H, Plasma Sodium 151 H, Potassium 3.9 D, Chloride 106, Carbon Dioxide 34.7 H, Anion Gap 12.2, BUN 25 H, Creatinine 1.76 H, Est GFR (Non-Af Amer) 42 L, BUN/Creatinine Ratio 14.2, Random Glucose 198 H, Calcium 7.3 L, Calcium Adj for Albumin 8.3 L, Total Bilirubin 0.8, AST 36, ALT 28, Alkaline Phosphatase 91, Total Protein 6.6, Albumin 2.3 L 09/23/20 07:48: WBC 6.3, RBC 4.42 L, Hgb 12.7 L, Hct 41.8 L, MCV 94.6, MCH 28.7, MCHC 30.4 L, RDW 13.6, Plt Count 231, MPV 9.5, Neutrophils % (Manual) 76 H, Band Neuts % (Manual) 1, Lymphocytes % (Manual) 10 L, Monocytes % (Manual) 8, I mmature Granulocytes 1, Neutrophils # (Manual) 4.8, Lymphocytes # (Manual) 0.6 L, Monocytes # (Manual) 0.5, Atypic/Reactive Lymphs 4 H, Platelet Estimate Normal, RBC Morphology Normal 09/24/20 08:00: Sodium 151 H, Plasma Sodium 153 H, Potassium 3.4, Chloride 110 H, Carbon Dioxide 34.9 H, Anion Gap 9.5, BUN 25 H, Creatinine 1.55 H, Est GFR (Non-Af Amer) 48 L, BUN/Creatinine Ratio 16.1, Random Glucose 204 H, Calcium 7.5 L, Calcium Adj for Albumin 8.5, Total Bilirubin 0.8, AST 33, ALT 24, Alkaline Phosphatase 90, Total Protein 6.7, Albumin 2.3 L 09/24/20 08:00: WBC 6.3, RBC 4.37 L, Hgb 12.4 L, Hct 41.9 L, MCV 95.9, MCH 28.4, MCHC 29.6 L, RDW 13.7, Plt Count 218, MPV 9.6, Neutrophils % (Manual) 75, Lymphocytes % (Manual) 10 L, Monocytes % (Manual) 11 H, Neutrophils # (Manual) 4.7, Lymphocytes # (Manual) 0.6 L, Monocytes # (Manual) 0.7, Atypic/Reactive Lymphs 4 H, Platelet Estimate Normal, RBC Morphology Normal 09/25/20 06:31: Sodium 157 H, Plasma Sodium 159 H, Potassium 3.6, Chloride 113 H, Carbon Dioxide 36.0 H, Anion Gap 11.6, BUN 32 H, Creatinine 1.98 H D, Est GFR (Non-Af Amer) 36 L D, BUN/Creatinine Ratio 16.2, Random Glucose 213 H, Calcium 7.6 L, Calcium Adj for Albumin 8.4, Total Bilirubin 0.8, AST 26, ALT 26, Alkaline Phosphatase 98, Total Protein 7.1, Albumin 2.6 L 09/25/20 06:31: WBC 8.1 D, RBC 4.96, Hgb 14.0, Hct 47.8, MCV 96.4, MCH 28.2, MCHC 29.3 L, RDW 13.9, Plt Count 186, MPV 10.8, Neutrophils % (Manual) 75, Lymphocytes % (Manual) 15 L, Monocytes % (Manual) 9, Eosinophils % (Manual) 1, Neutrophils # (Manual) 6.1 H, Lymphocytes # (Manual) 1.2 L, Monocytes # (Manual) 0.7, Eosinophils # (Manual) 0.1, Platelet Estimate Normal, RBC Morphology Normal Discharge Location: [facility] Disposition: Hospice Home Condition: Poor Discharge Activity: Activity as tolerated Discharge Diet: General/regular food Additional Patient Instructions (free text): Hospice with [facility] at [facility]. Prescriptions (Any new or edited meds): Lorazepam [Ativan Intensol] 2 mg PO QID PRN #240 mg PRN Reason: Anxiety Transmission Status: Sent to [facility] Haloperidol Lactate [Haldol Oral Concentrate] 1 mg PO Q6H PRN #120 mg PRN Reason: Anxiety Transmission Status: Pending to [facility] Morphine Sulfate [Morphine Sulfate Conc. Oral Solution] 2 mg PO Q4H PRN #1 bottle PRN Reason: Pain Transmission Status: Sent to [facility] Scopolamine [Transderm-Scop] 1.5 mg TD Q3D #10 patch.[id number] Transmission Status: Pending to [facility] Zinc Oxide 1 appl TP TID #1 tube Transmission Status: Pending to [facility] Complete Home Medications List: Complete Home Medication List: miconazole nitrate 2 % topical powder 1 applic TP BID #90 g 07/09/20 lurasidone 80 mg tablet 80 mg PO QPM #1 tab 07/21/20 lamotrigine 150 mg tablet 150 mg PO DAILY #30 tab 09/21/20 Acetaminophen [Tylenol] 650 mg PO Q6H PRN tablet 09/25/20 Albuterol Sulfate/Ipratropium [Duoneb 2.5-0.5MG/3ML Soln] 3 ml IH Q6H PRN nebu 09/25/20 Haloperidol Lactate [Haldol Oral Concentrate] 1 mg PO Q6H PRN #120 mg 09/25/20 Lorazepam [Ativan Intensol] 2 mg PO QID PRN #240 mg 09/25/20 Morphine Sulfate [Morphine Sulfate Conc. Oral Solution] 2 mg PO Q4H PRN #1 bottle 09/25/20 Scopolamine [Transderm-Scop] 1.5 mg TD Q3D #10 patch.[id number] 09/25/20 Zinc Oxide 1 appl TP TID #1 tube 09/25/20 lamoTRIgine [Lamictal] 150 mg PO BID tablet 09/25/20 Forms: Patient Portal Registration
[2020-09-25] MEDS: METOPROLOL TARTRATE 50 MG TABLET PO SCH (10:48)
[2020-09-25] MEDS: lamoTRIgine 100 MG TABLET PO SCH (10:48)
== END 2020-09-25 11:02 | disposition hospice, home (50) | DRG 177 ==
LOC: ER 17:34 → MS 17:34 → SCU 17:34 → OBSVTOIN 19:55 → SCU 22:00
PROVIDERS: ADMIT Family Medicine; ATTEND Family Medicine
DX: J12.82 Pneumonia due to coronavirus disease 2019; Z68.41 Body mass index [BMI] 40.0-44.9, adult; I10 Essential (primary) hypertension; D64.9 Anemia, unspecified; E87.0 Hyperosmolality and hypernatremia; I50.9 Heart failure, unspecified; R77.8 Other specified abnormalities of plasma proteins; W19.XXXA Unspecified fall, initial encounter; R45.1 Restlessness and agitation; N18.30 Chronic kidney disease, stage 3 unspecified; F79 Unspecified intellectual disabilities; N17.9 Acute kidney failure, unspecified; J96.01 Acute respiratory failure with hypoxia; F31.9 Bipolar disorder, unspecified; E87.6 Hypokalemia; E83.51 Hypocalcemia; Q90.9 Down syndrome, unspecified; E11.22 Type 2 diabetes mellitus with diabetic chronic kidney disease; L89.302 Pressure ulcer of unspecified buttock, stage 2; U07.1 COVID-19; I48.91 Unspecified atrial fibrillation